=== PATIENT | female | born 1960 | race Caucasian/White ===

== ENCOUNTER → 2020-02-29 19:39 | Outpatient (CLI) | payer MEDICAID, SELFPAY ==
[2020-02-29 20:43] LABS: Chloride 101 mmol/L (98-107); Potassium 4.2 mmoL/L (3.5-5.1); Sodium 138 mmol/L (136-145)
[2020-02-29 20:46] LABS: Alanine Aminotransferase 23 U/L (12-78); Albumin Level 4.6 g/dl (3.5-5.0); Albumin/Globulin Ratio 1.3 (1.1-1.8); Alkaline Phosphatase 80 U/L (38-126); Anion Gap 8.2 mEq/L (5-15); Aspartate Amino Transferase 27 U/L (14-36); Bilirubin,Total 0.4 mg/dl (0.2-1.3); Blood Urea Nitrogen 12 mg/dl (7-17); Calcium 9.8 mg/dl (8.4-10.2); Carbon Dioxide 33 mmol/L (22.0-30.0); Estimated Glomerular Filt Rate 74 ml/min (>60); GFR (African American) 89 ML/MIN (>60); Globulin 3.5 g/dL (1.3-3.2); Glucose 111 mg/dl (74-100); HDL Cholesterol 55 mg/dl (40-60); Total Protein,Serum 8.1 g/dl (6.3-8.2); Triglycerides 394 mg/dl (30-150); VLDL Cholesterol 79 mg/dL (0-40)
[2020-02-29 20:51] LABS: Basophils # 0.3 K/mm3 (0-0.2); Basophils % 3.9 % (0.1-2.0); Eosinophils # 0.2 K/mm3 (0.0-0.4); Eosinophils % 2.7 % (0.1-12.0); Hematocrit 43.7 % (37.0-47.0); Hemoglobin 15.1 g/dL (12.2-16.2); Lymphocytes # 2.8 K/mm3 (0.7-4.5); Mean Corpuscular HGB Conc 34.6 g/dL (31.8-35.4); Mean Corpuscular Volume 95.4 fl (81-99); Monocytes # 0.4 K/mm3 (0.1-1.0); Monocytes % 4.6 % (1.7-9.3); Neutrophils # 5.1 K/mm3 (1.8-7.8); Neutrophils % 59.8 % (37.0-80.0); Platelet Count 252 K/mm3 (142-424); Red Blood Count 4.58 M/mm3 (4.20-5.40); Red Cell Distribution Width 15.6 % (11.5-17.5); White Blood Count 8.5 K/mm3 (4.8-10.8)
[2020-02-29 20:54] LABS: Chol/HDL Ratio 6.5 (1-3.5); Cholesterol 355 mg/dl (140-200)
[2020-02-29 20:58] LABS: Direct LDL Cholesterol 238.74 mg/dL (100-129)
[2020-02-29 21:04] LABS: T4 (Thyroxine) 6.5 ug/dl (5.53-11.0)
== END ==
PROVIDERS: Visit Provider Nurse Practitioner Family
DX: Z00.00 Encounter for general adult medical examination without abnormal findings (principal); E03.9 Hypothyroidism, unspecified; S46.911A Strain of unspecified muscle, fascia and tendon at shoulder and upper arm level, right arm, initial encounter; Z79.899 Other long term (current) drug therapy
CPT/HCPCS: 80053; 80061; 84436; 84443; 85025

== ENCOUNTER → 2020-04-06 12:25 | Outpatient (CLI) | payer MEDICAID, SELFPAY | PROVIDERS: PCP Nurse Practitioner Family; Referring Provider Nurse Practitioner Family; Visit Provider Nurse Practitioner Family | DX: Z20.822 Contact with and (suspected) exposure to COVID-19 (principal) | CPT/HCPCS: U0003 ==

== ENCOUNTER → 2020-05-03 13:45 | Outpatient (CLI) | payer MEDICAID, SELFPAY ==
[2020-05-03 14:33] LABS: Free T4 (Free Thyroxine) 1.59 ng/dl (0.78-2.19)
[2020-05-03 14:46] LABS: Thyroid Stimulating Hormone 2.58 uIU/mL (0.465-4.68)
== END ==
PROVIDERS: Visit Provider Nurse Practitioner Family
DX: E05.00 Thyrotoxicosis with diffuse goiter without thyrotoxic crisis or storm (principal); K59.00 Constipation, unspecified
CPT/HCPCS: 84439; 84443

== ENCOUNTER 2020-05-24 13:25 | Outpatient (CLI) | payer MEDICAID, SELFPAY ==
[2020-05-24 13:32] VITALS: BMI 24.2
[2020-05-24 14:08] LABS: Chloride 108 mmol/L (98-107)
[2020-05-24 14:09] LABS: Basophils # 0.2 K/mm3 (0-0.2); Basophils % 1.7 % (0.1-2.0); Eosinophils # 0.3 K/mm3 (0.0-0.4); Hematocrit 42.9 % (37.0-47.0); Hemoglobin 13.9 g/dL (12.2-16.2); Lymphocytes % 29.5 % (10-50); Mean Corpuscular HGB Conc 32.3 g/dL (31.8-35.4); Mean Corpuscular Volume 95.8 fl (81-99); Mean Platelet Volume 10.6 fl (7.4-10.4); Monocytes # 0.5 K/mm3 (0.1-1.0); Monocytes % 5.2 % (1.7-9.3); Neutrophils # 6.1 K/mm3 (1.8-7.8); Neutrophils % 60.6 % (37.0-80.0); Platelet Count 197 K/mm3 (142-424); Potassium 3.8 mmoL/L (3.5-5.1); Red Blood Count 4.48 M/mm3 (4.20-5.40); Red Cell Distribution Width 12.7 % (11.5-17.5); Sodium 140 mmol/L (136-145); White Blood Count 10.1 K/mm3 (4.8-10.8)
[2020-05-24 14:11] LABS: Alanine Aminotransferase 16 U/L (12-78); Aspartate Amino Transferase 22 U/L (14-36); Bilirubin,Total 0.3 mg/dl (0.2-1.3); Blood Urea Nitrogen 5 mg/dl (7-17); Creatinine Clearance Estimated 125 mL/min (50-200); Estimated Glomerular Filt Rate 127 ml/min (>60); GFR (African American) 154 ML/MIN (>60)
[2020-05-24 14:12] LABS: Albumin Level 4.2 g/dl (3.5-5.0); Albumin/Globulin Ratio 1.6 (1.1-1.8); Alkaline Phosphatase 69 U/L (38-126); Anion Gap 5.8 mEq/L (5-15); Carbon Dioxide 30 mmol/L (22.0-30.0); Globulin 2.7 g/dL (1.3-3.2); Glucose 113 mg/dl (74-100); Total Protein,Serum 6.9 g/dl (6.3-8.2)
[2020-05-26 19:12] LABS: CEA 4.1 ng/mL (0.0-4.7)
== END 2020-05-24 13:50 | disposition home or self-care (01) ==
LOC: INF 13:34
PROVIDERS: PCP Nurse Practitioner Family; Visit Provider Internal Medicine Medical Oncology
DX: Z85.038 Personal history of other malignant neoplasm of large intestine (principal); Z45.2 Encounter for adjustment and management of vascular access device
CPT/HCPCS: 80053; 82378; 85025; J1642

== ENCOUNTER → 2020-06-14 06:48 | Outpatient (CLI) | payer MEDICAID, SELFPAY ==
--- NOTE | 2020-06-14 06:57 | CT_ITS ---
PROCEDURE: CT CHEST WO CON CLINICAL INDICATION: COLON CANCER R/o mets Seasonal sinus allergies COMPARISON: No exams were available for comparison TECHNIQUE: Axial images obtained with sagittal and coronal reformats. All CT scans at the facility use one or more dose reduction, viz: automated exposure control, ma/kV adjustment per patient size (including targeted exams where dose is matched to indication, i.e. head), or iterative reconstruction technique. FINDINGS: HEART AND MEDIASTINAL STRUCTURES: There are few small mediastinal lymph nodes some of which are calcified. The largest noncalcified node is in the AP window having a bilobed configuration at 13 by 9 mm. There is a right IJ MediPort catheter present with tip in the region the SVC. LUNGS AND PLEURAL SPACES: Nonspecific 3 mm noncalcified nodule right lower lobe series 3, image 50. Calcified granuloma right upper lobe. No suspicious pulmonary nodules apparent. No effusions or infiltrates. BONY STRUCTURES: No acute bony abnormalities apparent. UPPER ABDOMEN: Unremarkable. ADDITIONAL FINDINGS: Ill-defined nodular opacity is present involving the medial aspect of the right breast measuring 10 mm series 3, image 36. This may only be due to an area of asymmetric tissue. Suggest mammogram if not recently performed. IMPRESSION: No convincing evidence of metastatic disease. There is a 3 mm nodule in the right lower lobe nonspecific too small to categorize. Stability may be confirmed with 6-12 month follow-up. Ill-defined nodular opacity is present involving the medial aspect of the right breast measuring 10 mm . This may only be due to an area of asymmetric tissue. Cannot exclude the possibility of a breast nodule. Suggest mammogram an ultrasound if not recently performed. Dictated by: Easton Montgomery MD 06/15/2020 10:26 Easton Montgomery MD in [place] 06/15/2020 10:26
== END ==
PROVIDERS: PCP Nurse Practitioner Family; Visit Provider Internal Medicine Medical Oncology
DX: C18.9 Malignant neoplasm of colon, unspecified (principal)
CPT/HCPCS: 71250

== ENCOUNTER 2020-06-21 08:00 | Outpatient (RCR) | payer MEDICAID, SELFPAY | END 2020-06-21 08:05 | disposition home or self-care (01) | LOC: OT 08:00 | PROVIDERS: PCP Nurse Practitioner Family; Visit Provider Nurse Practitioner Family | DX: M25.511 Pain in right shoulder (principal); G89.29 Other chronic pain | CPT/HCPCS: 97014; 97110; 97166; G0283 ==

== ENCOUNTER 2021-11-21 14:49 | Outpatient (CLI) | payer MEDICAID, SELFPAY ==
[2021-11-21 14:54] VITALS: BMI 21.8
[2021-11-21 15:11] LABS: Basophils # 0.1 K/mm3 (0-0.2); Basophils % 1.4 % (0.1-2.0); Eosinophils # 0.2 K/mm3 (0.0-0.4); Hematocrit 42.6 % (37.0-47.0); Hemoglobin 13.5 g/dL (12.2-16.2); Lymphocytes # 2.5 K/mm3 (0.7-4.5); Lymphocytes % 42.3 % (10-50); Mean Corpuscular HGB Conc 31.7 g/dL (31.8-35.4); Mean Corpuscular Hemoglobin 30.3 pg (27.0-31.2); Mean Corpuscular Volume 95.5 fl (81-99); Monocytes # 0.5 K/mm3 (0.1-1.0); Monocytes % 8.4 % (1.7-9.3); Neutrophils # 2.7 K/mm3 (1.8-7.8); Neutrophils % 44.9 % (37.0-80.0); Platelet Count 170 K/mm3 (142-424); Red Blood Count 4.46 M/mm3 (4.20-5.40); Red Cell Distribution Width 12.4 % (11.5-17.5); White Blood Count 5.9 K/mm3 (4.8-10.8)
[2021-11-21 15:19] LABS: Chloride 100 mmol/L (98-107); Potassium 4.3 mmoL/L (3.5-5.1); Sodium 138 mmol/L (136-145)
[2021-11-21 15:21] LABS: Blood Urea Nitrogen 11 mg/dl (7-17); Creatinine Clearance Estimated 61 mL/min (50-200); Estimated Glomerular Filt Rate 64 ml/min (>60); GFR (African American) 78 ML/MIN (>60)
[2021-11-21 15:22] LABS: Alanine Aminotransferase 12 U/L (12-78); Albumin Level 4.1 g/dl (3.5-5.0); Albumin/Globulin Ratio 1.4 (1.1-1.8); Alkaline Phosphatase 70 U/L (38-126); Anion Gap 10.3 mEq/L (5-15); Aspartate Amino Transferase 24 U/L (14-36); Bilirubin,Total < 0.1 mg/dl (0.2-1.3); Carbon Dioxide 32 mmol/L (22.0-30.0); Globulin 2.9 g/dL (1.3-3.2)
[2021-11-21 15:23] LABS: Calcium 8.7 mg/dl (8.4-10.2); Glucose 93 mg/dl (74-100)
[2021-11-23 09:54] LABS: CEA 3.3 ng/mL (0.0-4.7)
== END 2021-11-21 15:03 | disposition home or self-care (01) ==
LOC: INF 14:51
PROVIDERS: PCP Nurse Practitioner Family; Visit Provider Internal Medicine Medical Oncology
DX: C18.9 Malignant neoplasm of colon, unspecified (principal)
CPT/HCPCS: 36591; 80053; 82378; 85025; J1642

== ENCOUNTER → 2021-11-28 10:40 | Outpatient (CLI) | payer MEDICAID, SELFPAY | PROVIDERS: PCP Nurse Practitioner; Visit Provider Nurse Practitioner | DX: R53.83 Other fatigue (principal); I10 Essential (primary) hypertension; E78.5 Hyperlipidemia, unspecified; E05.00 Thyrotoxicosis with diffuse goiter without thyrotoxic crisis or storm; E55.9 Vitamin D deficiency, unspecified | CPT/HCPCS: 80053; 80061; 82306; 84443; 85025 ==

== ENCOUNTER → 2021-12-11 08:41 | Outpatient (CLI) | payer MEDICAID, SELFPAY ==
--- NOTE | 2021-12-11 08:49 | CT_ITS ---
FINAL REPORT CLINICAL HISTORY: COLON CANCER COMPARISON: 06/14/2020 FINDINGS: Axial CT images of the chest were obtained with contrast. Coronal reformatted images were also obtained. This study was performed with techniques to keep radiation doses as low as reasonably achievable, (ALARA). Individualized dose reduction techniques using automated exposure control or adjustment of mA and/or KV according to the patient's size were employed. A right chest port is present. There are small mediastinal lymph nodes. There is no evidence of hilar mass or adenopathy. No axillary mass or adenopathy is identified. On lung window images, no pulmonary mass or dominant pulmonary nodule is identified. There is a calcified granuloma in the posterior right upper lobe. The small right lower lobe nodule seen previously is not definitely seen on the current exam. There is mild left lung base atelectasis or scarring. No new mass or nodule is identified. Limited images of the upper abdomen reveal no mass or localized inflammatory process. IMPRESSION: Previously seen right lower lobe nodule not definitely seen on current exam. No new mass or nodule identified. Mild left lung base atelectasis or scarring. Reviewed, Interpreted and Dictated by Danielito Hewitt III, MD Transcribed by Temitope Ricks Authenticated and [facility]
--- NOTE | 2021-12-11 08:49 | CT_ITS ---
FINAL REPORT CLINICAL HISTORY: COLON CANCER COMPARISON: Chest CT dated 06/14/2020 FINDINGS: The patient was injected with intravenous contrast. Oral contrast was administered. Axial images through the abdomen and pelvis were performed. This study was performed with techniques to keep radiation doses as low as reasonably achievable (ALARA). Individualized dose reduction techniques using automated exposure control or adjustment of mA and/or kV according to the patient's size were employed. Abdomen: The lung bases are clear. The liver is normal in size and attenuation. There is nonspecific gallbladder wall thickening. There is no evidence of biliary ductal dilatation. The spleen is unremarkable. There is mild left adrenal gland enlargement, stable and favors an adenoma or hyperplasia. The pancreas is unremarkable. The kidneys enhance appropriately. The aorta is normal in caliber. There is no free fluid or adenopathy. There are postoperative changes in the left abdomen. Pelvis: The appendix is not identified. There are postoperative changes from hysterectomy. The urinary bladder is unremarkable. There is no free fluid or adenopathy. IMPRESSION: Nonspecific gallbladder wall thickening with no evidence of biliary ductal dilatation. Stable mild left adrenal gland enlargement, favor adenoma or hyperplasia. Reviewed, Interpreted and Dictated by Danielito Hewitt III, MD Transcribed by Temitope Ricks Authenticated and [facility]
--- NOTE | 2021-12-11 09:33 | MM_ITS ---
PROCEDURE INFORMATION: Exam: MG Bilateral Screening 3D Mammography Exam date and time: 12/11/2021 9:24 AM Age: 61 years old Clinical indication: Screening examination TECHNIQUE: Imaging protocol: Bilateral Screening tomosynthesis and 2D mammography including computer-aided detection (CAD) when performed. COMPARISON: 1. MG DIGITAL MAMMO SCREEN KOLBY 04/09/2018 11:05 AM 2. MG BREAST CORE BX RT 10/26/2014 8:27 AM 3. MG MAMMO POST PLACEMENT 10/26/2014 8:04 AM 4. MG DIGITAL MAMMO DIAG RT 10/13/2014 8:47 AM FINDINGS: MAMMOGRAPHY: Breast composition: The breast is heterogeneously dense, which may obscure small masses. Mass: None. Architectural distortion: No new or suspicious architectural distortion. Calcifications: Stable benign-appearing calcifications are present. No new or suspicious cluster of microcalcifications have developed. Asymmetric density: No new or suspicious asymmetric density is present Skin thickening: None. Axillary adenopathy: None. IMPRESSION: No mammographic evidence of malignancy. Recommend annual screening mammography unless otherwise clinically indicated. ASSESSMENT: BI-RADS category 2: Benign
== END ==
PROVIDERS: PCP Nurse Practitioner; Visit Provider Internal Medicine Medical Oncology
DX: C18.9 Malignant neoplasm of colon, unspecified (principal); Z12.31 Encounter for screening mammogram for malignant neoplasm of breast
CPT/HCPCS: 71260; 74177; 77063; 77067; Q9967

== ENCOUNTER 2022-01-31 08:14 | Day surgery (SDC) | payer MEDICAID, SELFPAY ==
[2022-01-27 14:04] VITALS: BMI 22.3
[2022-01-31 08:36] VITALS: BP 154/61; PULSE 69; RESP 18; TEMP 36.1; O2SAT 100
[2022-01-31 09:07] VITALS: O2SAT 100
--- NOTE | 2022-01-31 09:17 | P.PN_ITS ---
[facility] Disclaimer: The information contained in this section may have been updated after the patient was seen, as this information can be updated by other users. Medical History Colon cancer Graves disease Graves' disease in remission H/O colon cancer, stage IV HTN (hypertension), benign Hyperlipidemia Surgical History H/O total hysterectomy History of repair of right rotator cuff History of tonsillectomy and adenoidectomy Hx of appendectomy Family History Brother Colon cancer Mother Colon cancer Social History Smoking Status: Never smoker alcohol intake: never substance use type: denies use current occupational status: unemployed Travel in the last 8 weeks: None household members: family housing: house [facility] Anesthesia Checklist Patient Identification Patient Identification: Arm Band and Verbal (Name & ) Structural Data Admitted From: Home Planned Operative Procedure/s: Colonoscopy Consent for Planned Operative Procedure(s) Verified: Yes Verified Documents: Surgical Consent NPO Status Verified Time NPO: 00:00 Airway Assessment Dentition: Edentulous Neurological Assessment Level of Consciousness: Awake, Alert and Appropriate Anesthesia Plan Anesthesia Risk discussed: Yes ASA Class: III Anesthesia Type: MAC
--- NOTE | 2022-01-31 09:49 | P.PCN_ITS ---
Procedure: Date: 01/31/22 Patient Date of :: 1960 Procedure Performed:: Colonoscopy with polypectomy using snare and biopsy Indications:: Patient is a 61-year-old female. She has a reported history of colon cancer treated in 2013 with resection [id number]. She states that initially this was stage II. She had apparent recurrence and this was upgraded to stage IV secondary to apparent abdominal wall tumor in 2014. She did have a colonoscopy in 2016. There is apparently a an extensive family history of colon cancer with her mother dying of colon cancer and she has 2 brothers who have been diagnosed with colon cancer. Performing Provider:: Danielito Desir MD Referring Provider:: Shane Boyce Sedation:: MAC sedation Procedure:: Patient history was obtained and appropriate physical examination was performed. Patient's medications and allergies were reviewed. Informed consent was obtained after explaining the benefits, alternatives, and risks of the procedure including, but not limited to, bleeding, perforation, missed lesions, and adverse reaction to anesthesia medications. Patient was transported to endoscopy procedure room. Patient was connected to monitoring devices. Throughout the procedure the patient's blood pressure, pulse, and oxygen saturations were monitored continuously. Patient identification and planned procedure were verified by the staff. Patient was positioned in lateral decubitus position. Digital anorectal exam was performed. Variable stiffness Olympus colonoscope was inserted and advanced under direct visualization to the apparent ileocolic anastomosis. Adequacy of the colonic preparation was noted. The colonoscope was advanced a short distance into the terminal ileum. The colonoscope was then slowly withdrawn while carefully examining the color, texture, anatomy, and integrity of the mucosoa circumferentially. Within the rectum retroflexion was performed. Colonoscope was then withdrawn. Findings:: She had a rather shortened colon measuring about 50 cm from the anal verge to the ileocolic anastomosis. There appeared to be possibly a second anastomosis at approximately 25 cm. There was some hypertrophic mucosa which may be merely anastomotic granulation tissue but biopsies were performed. This area was marked with Deyanira ink. Just distal to this there was a punctate mucosal ulceration which was biopsied as rectosigmoid colon biopsy. She had several hyperplastic appearing polyps in the rectosigmoid which were removed with biopsy forceps and second polyp removed with snare with residual polyp removed with biopsy forceps. In the rectum there were several diminutive hyperplastic appearing polyps removed with snare. Hemoclip was placed on 1 of these for assurance of hemostasis. Retroflexion in the rectum revealed no evidence of any pathologic internal hemorrhoids. Impression: Shortened colon with ileocolic anastomosis at 50 cm. Possible second anastomo sis as a colono?colic anastomosis at 25 cm Prominent hypertrophic mucosa at possible second distal anastomosis which was biopsied and tattooed with Deyanira ink Several hyperplastic appearing rectosigmoid and rectal polyps Recommendations:: Repeat colonoscopy pending pathology. If biopsies at the rectosigmoid region of the possible anastomosis are truly adenomatous may require referral for more definitive management due to her complex history. Complications:: None immediately apparent Estimated blood obtained (mL): 3
[2022-01-31 09:50] VITALS: BP 94/66; PULSE 56; RESP 16; TEMP 36.7; O2SAT 100
[2022-01-31 10:00] VITALS: BP 110/61; PULSE 56; RESP 16; O2SAT 99
[2022-01-31 10:10] VITALS: BP 132/70; PULSE 60; RESP 17; O2SAT 99
[2022-01-31 10:37] VITALS: BP 147/79; PULSE 61; RESP 16; O2SAT 100
== END 2022-01-31 10:50 | disposition home or self-care (01) ==
PROVIDERS: PCP Nurse Practitioner Family; Visit Provider Surgery
PROC: 0DJD8ZZ Inspection of Lower Intestinal Tract, Via Natural or Artificial Opening Endoscopic (ICD-10-PCS; CPT 45380; principal; 2022-01-31 09:30)
DX: Z12.11 Encounter for screening for malignant neoplasm of colon (principal); Z86.010 Personal history of colon polyps; D12.8 Benign neoplasm of rectum; Z79.899 Other long term (current) drug therapy
CPT/HCPCS: 45380; 45385; J1642; J2704

== ENCOUNTER 2022-03-30 12:09 | Emergency (ER) | payer MEDICAID, SELFPAY ==
[2022-03-30 12:19] VITALS: BP 143/66; PULSE 68; RESP 14; TEMP 36.4; O2SAT 100; BMI 22.3
--- NOTE | 2022-03-30 12:25 | EXP.UTC ---
Discharge Plan Disposition Patient Disposition: Home, Self-Care Condition: Good Prescriptions Prescriptions: New diclofenac sodium 1 % gel 2 g topical TIDP PRN (Reason: pain) Qty: 100 0RF Rx Instructions: apply to back of shoulder as directed for pain No Action levothyroxine 88 mcg tablet See Rx Instructions .ROUTE .COMPLEX Qty: 90 1RF Dose Instruction: Take 1 Tablet by mouth once daily. Rx Instructions: Take 1 Tablet by mouth once daily. atorvastatin 20 mg tablet 20 mg PO DAILY cetirizine [Zyrtec] 10 mg tablet 10 mg PO DAILY citalopram 20 mg tablet See Rx Instructions .ROUTE .COMPLEX Rx Instructions: Take 1 tablet by mouth once daily famotidine 20 mg tablet 20 mg PO DAILY lisinopril 10 mg tablet 10 mg PO DAILY hydrochlorothiazide 25 mg tablet 25 mg PO DAILY fluticasone propionate [Flonase Allergy Relief] 50 mcg/actuation spray,suspension 1 spray intranasal DAILY Rx Instructions: administer into each nostril cholecalciferol (vitamin D3) 50 mcg (2,000 unit) capsule 50 mcg PO DAILY cholecalciferol (vitamin D3) 1,250 mcg (50,000 unit) tablet 1,250 mcg PO WEEKLY peg 3350-electrolytes [Golytely] 236-22.74-6.74 -5.86 gram recon soln 240 ml PO Q10M Rx Instructions: until fecal effluent is clear Referrals Follow up/Referrals: Shane Caicedo APRN [Primary Care Provider] - See instructions Shashank Kearns DO [Staff Physician] - See instructions Activity Restrictions/Add. Instructions Additional Instructions/Restrictions: *Ibuprofen pablo 6 hours with meal as needed for pain/inflammation *Remember you had a Toradol shot in the clinic today, which is similar to Motrin *Not additional anti-inflammatory like motrin, aleve, advil with the above amount of ibuprofen. You can still take Tylenol every 4 hours as needed if you need something else for pain Follow up *Keep this area active, no movement leads to more stiffness, However take it easy and avoid heavy lifting pushing or pulling *Follow up with you family doctor if no improvement for further treatment Follow up with Orthopedics for further evaluation and examination Clinical Impressions Clinical Impression: Right shoulder injury Stand Alone Forms Stand Alone Forms: Work/School Release Instructions Patient Instructions: DI for Shoulder Pain, Diclofenac Topical (arthritis pain) Discharge ED Provider: Tiff Clayton [facility] [place] General Stated complaint: RT shoulder pain/numbness Time Seen by Provider: 03/30/22 12:59 History of Present Illness Provider Complaint: Patient states that she works at [employer] and is right hand dominant States that about a week ago she started having pain in her right shoulder States that she had previous surgery on shoulder for rotator cuff repair and thinks she may have reinjuried it States that she has been having pain in her right shoulder when she moves it certain ways and shoots pain down her arm into her hand/fingers States that she wasnt able to go to work yesterday and had to call in so she came in today to get it checked and get a note for work Related Data Home Medications Medication Instructions Recorded Confirmed atorvastatin 20 mg tablet 20 mg PO DAILY Cholesterol 01/27/22 01/27/22 cetirizine 10 mg tablet (Zyrtec) 10 mg PO DAILY allergies 01/27/22 01/27/22 cholecalciferol (vitamin D3) 1,250 1,250 mcg PO WEEKLY Supplement 01/27/22 01/27/22 mcg (50,000 unit) tablet cholecalciferol (vitamin D3) 50 50 mcg PO DAILY Supplement 01/27/22 01/27/22 mcg (2,000 unit) capsule citalopram 20 mg tablet See Rx Instructions .Route 01/27/22 01/27/22 .COMPLEX Depression famotidine 20 mg tablet 20 mg PO DAILY acid reflux 01/27/22 01/27/22 fluticasone propionate 50 1 spray intranasal DAILY allergies 01/27/22 01/27/22 mcg/actuation nasal spray,suspension (Flonase Allergy Relief) hydrochlorothiazide 25 mg tablet
[2022-03-30 12:45] VITALS: BP 143/66; PULSE 68; RESP 20; O2SAT 100; BMI 10.1
--- NOTE | 2022-03-30 12:48 | XR_ITS ---
PROCEDURE INFORMATION: Exam: XR Right Shoulder Exam date and time: 03/30/2022 12:48 PM Age: 61 years old Clinical indication: Pain; Prior surgery; Surgery date: 6+ months; Surgery type: Right rotator cuff surgery 1 year ago. Patient HX: Patient worked for [employer]. 2 years ago she was unloading a truck when a 150lb package fell and hit her right shoulder. She had right rotator cuff repair 1 year ago. She has a port a cath from when she had colon cancer about 3 years ago. Supposedly cancer free at this time. ; Additional info: Pain in right shoulder since original injury 2 years ago. Limited range of motion. TECHNIQUE: Imaging protocol: Radiologic exam of the Right shoulder. Views: 2 or more views. COMPARISON: CT CHEST W CON 12/11/2021 9:12 AM FINDINGS: Bones/joints: Moderate to moderately severe degenerative changes of glenohumeral joint. Moderate degenerative changes of acromioclavicular joint. Soft tissues: Normal. Chuck catheter tip projected over atrial caval junction. IMPRESSION: No acute findings. Degenerative changes.
[2022-03-30 13:36] VITALS: BP 144/85; PULSE 77; RESP 20; TEMP 36.9; O2SAT 100
== END 2022-03-30 13:36 | disposition home or self-care (01) ==
PROVIDERS: Emergency Provider Nurse Practitioner; PCP Nurse Practitioner Family
DX: S49.91XA Unspecified injury of right shoulder and upper arm, initial encounter (principal)
CPT/HCPCS: 73030; 99212; 99213; G0463

== ENCOUNTER 2022-04-14 14:38 | Outpatient (RCR) | payer MEDICAID, SELFPAY | END 2022-04-14 14:40 | disposition home or self-care (01) | LOC: OT 14:38 | PROVIDERS: PCP Nurse Practitioner Family; Visit Provider Nurse Practitioner Family | DX: M25.511 Pain in right shoulder (principal); M25.611 Stiffness of right shoulder, not elsewhere classified; S49.91XA Unspecified injury of right shoulder and upper arm, initial encounter ==

== ENCOUNTER → 2022-05-01 10:03 | Outpatient (CLI) | payer MEDICAID, SELFPAY ==
--- NOTE | 2022-05-01 10:04 | MR_ITS ---
FINAL REPORT CLINICAL HISTORY: Neck pain. right sided neck pain that radiates down arm COMPARISON: none FINDINGS: Multiplanar MR imaging of the cervical spine was performed without contrast. On the sagittal T2-weighted images, disc degeneration is seen throughout. There are endplate changes at multiple levels. There is no evidence of fracture. The vertebral alignment is normal. The cervical spinal cord has an unremarkable appearance without evidence of mass, edema or syrinx. The cervicomedullary junction is normal. C2-3: There is no significant canal stenosis or neural foraminal narrowing. C3-4: Disc osteophyte complex. Mild right severe left neural foraminal narrowing. C4-5: Disc osteophyte complex. Moderate right and severe left neural foraminal narrowing. Mild central canal stenosis with AP diameter of the thecal sac of 8 mm. C5-6: Disc osteophyte complex. Moderate bilateral neural foraminal narrowing. Mild central canal stenosis with AP diameter of the thecal sac of 9 mm. C6-7: Disc osteophyte complex. Moderate right and severe left neural foraminal narrowing. Mild central canal stenosis with AP diameter of the thecal sac of 7 mm. C7-T1: Disc osteophyte complex. Mild bilateral neural foraminal narrowing. IMPRESSION: Multilevel degenerative disc disease as above. Reviewed, Interpreted and Dictated by Danielito Hewitt III, MD Transcribed by Camila Lopez Authenticated and [facility]
== END ==
PROVIDERS: PCP Nurse Practitioner Family; Visit Provider Nurse Practitioner Family
DX: M54.2 Cervicalgia (principal)
CPT/HCPCS: 72141; 76376

== ENCOUNTER 2022-06-04 08:00 | Outpatient (RCR) | payer MEDICAID, SELFPAY ==
--- NOTE | 2022-05-28 11:00 | HMH.RHREAS ---
Rehab Reassessment Rehab OP Re-assessment Start: 05/28/22 10:54 Freq: Status: Active Protocol: Document 05/28/22 10:54 [email or web address] (Rec: 05/28/22 11:00 MESSI [id number]) E-signed By Chasity Leon PT Rehab Re-assessment Subjective Subjective Pt reports neck pain and UE paresthesia has decreased in intensity since starting PT. Pt reports pain at worst as 1- 2/10 within the last week. Pt reports she still has difficulty using her R hand and is currently not working due to this. Objective Objective Notes Cervical AROM: flex 45, ext 45 , LF 35 RUE MMT: 05/28 grossly Assessment Progress Assessment Progressing as Expected Assessment Notes PT has attended 7 PT visits consisting of aerobic exercise , UE stretching/strengthening, neural glides, postural reeducation, manual therapy and modalities with good tolerance. Pt reports improved subjective report of pain and decreased intensity of RUE paresthesia stince starting PT . Pt also demonstrated improved cervical AROM and strength compared to IE. Pt would continue to benefit from skilled PT to further improve pain/paresthesia, UE strength , and functional activity tolerance to improve overall QOL. Patient goals met ST Goals Not Met LTG Revised Goals n/a Plan Plan Continue initial POC, refer to OT for R hand fine motor difficulties Frequency of Therapy 1-2x/week Duration of therapy 4 more weeks Time and Billing Re-Eval Time 10 Re-Eval Billing Units 1 PHYSICIAN CERTIFICATION: I certify the specified therapy services for Ioana Lowe are required, authorized, and reviewed every 30 days.
== END 2022-06-04 08:05 | disposition home or self-care (01) ==
LOC: PT 08:00
PROVIDERS: PCP Nurse Practitioner Family; Visit Provider Nurse Practitioner Family
DX: M54.2 Cervicalgia (principal)
CPT/HCPCS: 97010; 97014; 97110; 97140; 97163; 97164; 97530; G0283

== ENCOUNTER 2022-06-09 08:03 | Outpatient (CLI) | payer MEDICAID, SELFPAY ==
--- NOTE | 2022-06-09 08:14 | CT_ITS ---
FINAL REPORT TECHNIQUE: After the administration of intravenous contrast, axial images through the chest were performed by computed tomography.This study was performed with techniques to keep radiation doses as low as reasonably achievable, (ALARA). Individualized dose reduction techniques using automated exposure control or adjustment of mA and/or kV according to the patient''s size were employed. CLINICAL HISTORY: COLON CANCER FINDINGS: There is no axillary adenopathy. There are small mediastinal lymph nodes. There is no adenopathy. A right-sided chest port is seen. The heart size is normal. There is no pericardial or pleural effusion. Limited images of the upper abdomen are unremarkable. There is a calcified granuloma in the right upper lobe. There is a 2 mm nonspecific nodule in the lateral left upper lobe on image 24. IMPRESSION: Nonspecific 2 mm nodule in the lateral left upper lobe. Reviewed, Interpreted and Dictated by Danielito Hewitt III, MD Transcribed by Sg Kenney Authenticated and [facility]
--- NOTE | 2022-06-09 08:15 | CT_ITS ---
FINAL REPORT TECHNIQUE: Postcontrast axial images through the abdomen and pelvis were performed. This study was performed with techniques to keep radiation doses as low as reasonably achievable, (ALARA). Individualized dose reduction techniques using automated exposure control or adjustment of mA and/or kV according to the patient's size were employed. CLINICAL HISTORY: COLON CANCER COMPARISON: November 2021 FINDINGS: Abdomen: The liver is normal in size and attenuation. There is mild nonspecific gallbladder wall thickening. The spleen is unremarkable. There is stable nonspecific enlargement of the left adrenal gland favoring an adenoma. The pancreas is unremarkable. The kidneys enhance appropriately. The aorta is normal in caliber. There is moderate vascular calcification. No free fluid or adenopathy is identified. Postoperative changes are seen in the left abdomen from partial colectomy. No findings for mechanical bowel obstruction are identified. There is mild nonspecific wall thickening of the sigmoid colon favored to be inflammatory. Pelvis: The appendix is not identified. The urinary bladder is unremarkable. No free fluid, free air, abscess or adenopathy is identified. There has been hysterectomy. IMPRESSION: Mild nonspecific wall thickening of the sigmoid colon favored to be inflammatory. Reviewed, Interpreted and Dictated by Danielito Hewitt III, MD Transcribed by Sg Kenney Authenticated and [facility]
[2022-06-09 08:26] VITALS: BMI 21.1
[2022-06-09 08:50] LABS: Basophils # 0.1 K/mm3 (0-0.2); Basophils % 0.7 % (0.1-2.0); Eosinophils # 0.4 K/mm3 (0.0-0.4); Eosinophils % 2.7 % (0.1-12.0); Hematocrit 38.9 % (37.0-47.0); Hemoglobin 12.9 g/dL (12.2-16.2); Lymphocytes # 3.7 K/mm3 (0.7-4.5); Lymphocytes % 28.5 % (10-50); Mean Corpuscular HGB Conc 33.1 g/dL (31.8-35.4); Mean Corpuscular Hemoglobin 31.3 pg (27.0-31.2); Mean Corpuscular Volume 94.8 fl (81-99); Mean Platelet Volume 10.1 fl (7.4-10.4); Monocytes # 0.7 K/mm3 (0.1-1.0); Neutrophils # 8.2 K/mm3 (1.8-7.8); Neutrophils % 63.1 % (37.0-80.0); Platelet Count 241 K/mm3 (142-424); Red Cell Distribution Width 12.7 % (11.5-17.5); White Blood Count 13.1 K/mm3 (4.8-10.8)
[2022-06-09 08:54] LABS: Chloride 101 mmol/L (98-107)
[2022-06-09 08:55] LABS: Potassium 4.1 mmoL/L (3.5-5.1); Sodium 137 mmol/L (136-145)
[2022-06-09 08:57] LABS: Alanine Aminotransferase 24 U/L (12-78); Aspartate Amino Transferase 26 U/L (14-36); Bilirubin,Total 0.3 mg/dl (0.2-1.3); Blood Urea Nitrogen 14 mg/dl (7-17); Creatinine Clearance Estimated 67 mL/min (50-200); Estimated Glomerular Filt Rate 73 ml/min (>60); GFR (African American) 89 ML/MIN (>60)
[2022-06-09 08:58] LABS: Albumin Level 4.2 g/dl (3.5-5.0); Albumin/Globulin Ratio 1.4 (1.1-1.8); Alkaline Phosphatase 64 U/L (38-126); Anion Gap 12.1 mEq/L (5-15); Calcium 9.4 mg/dl (8.4-10.2); Carbon Dioxide 28 mmol/L (22.0-30.0); Glucose 139 mg/dl (74-100); Total Protein,Serum 7.2 g/dl (6.3-8.2)
[2022-06-10 11:10] LABS: CEA 5.8 ng/mL (0.0-4.7)
== END 2022-06-09 09:11 | disposition home or self-care (01) ==
PROVIDERS: PCP Nurse Practitioner Family; Visit Provider Internal Medicine Medical Oncology
DX: C18.9 Malignant neoplasm of colon, unspecified (principal)
CPT/HCPCS: 36591; 71260; 74177; 80053; 82378; 85025; J1642; Q9967

== ENCOUNTER 2022-07-15 08:08 | Outpatient (CLI) | payer MEDICAID, SELFPAY | END 2022-07-15 08:17 | disposition home or self-care (01) | LOC: INF 08:09 | PROVIDERS: PCP Nurse Practitioner Family; Visit Provider Internal Medicine Medical Oncology | DX: Z45.2 Encounter for adjustment and management of vascular access device (principal) | CPT/HCPCS: 96523; J1642 ==

== ENCOUNTER 2022-07-31 08:00 | Outpatient (RCR) | payer MEDICAID, SELFPAY | END 2022-07-31 08:05 | disposition home or self-care (01) | LOC: OT 08:00 | PROVIDERS: PCP Nurse Practitioner Family; Visit Provider Nurse Practitioner Family | DX: M79.641 Pain in right hand (principal); S69.91XA Unspecified injury of right wrist, hand and finger(s), initial encounter | CPT/HCPCS: 97010; 97014; 97110; 97140; 97165; 97530; 97763; G0283 ==

== ENCOUNTER → 2022-09-11 10:50 | Outpatient (CLI) | payer MEDICAID, SELFPAY ==
[2022-09-11 12:06] LABS: Alanine Aminotransferase 19 U/L (12-78); Albumin Level 4.4 g/dl (3.5-5.0); Albumin/Globulin Ratio 1.8 (1.1-1.8); Alkaline Phosphatase 73 U/L (38-126); Anion Gap 10.4 mEq/L (5-15); Aspartate Amino Transferase 23 U/L (14-36); Bilirubin,Total 0.4 mg/dl (0.2-1.3); Blood Urea Nitrogen 9 mg/dl (7-17); Calcium 9.6 mg/dl (8.4-10.2); Carbon Dioxide 31 mmol/L (22.0-30.0); Chloride 97 mmol/L (98-107); Estimated Glomerular Filt Rate 64 ml/min (>60); GFR (African American) 78 ML/MIN (>60); Globulin 2.5 g/dL (1.3-3.2); Glucose 126 mg/dl (74-100); Potassium 4.4 mmoL/L (3.5-5.1); Sodium 134 mmol/L (136-145); Total Protein,Serum 6.9 g/dl (6.3-8.2)
[2022-09-11 16:26] LABS: Basophils # 0.1 K/mm3 (0-0.2); Basophils % 0.5 % (0.1-2.0); Eosinophils # 0.3 K/mm3 (0.0-0.4); Eosinophils % 2.4 % (0.1-12.0); Hematocrit 35.3 % (37.0-47.0); Hemoglobin 11.7 g/dL (12.2-16.2); Lymphocytes # 2.7 K/mm3 (0.7-4.5); Lymphocytes % 24.6 % (10-50); Mean Corpuscular HGB Conc 33.2 g/dL (31.8-35.4); Mean Corpuscular Hemoglobin 30.8 pg (27.0-31.2); Mean Corpuscular Volume 92.8 fl (81-99); Mean Platelet Volume 9.6 fl (7.4-10.4); Monocytes # 0.4 K/mm3 (0.1-1.0); Monocytes % 3.9 % (1.7-9.3); Neutrophils # 7.4 K/mm3 (1.8-7.8); Neutrophils % 68.5 % (37.0-80.0); Platelet Count 271 K/mm3 (142-424); Red Blood Count 3.81 M/mm3 (4.20-5.40); Red Cell Distribution Width 12.6 % (11.5-17.5); White Blood Count 10.8 K/mm3 (4.8-10.8)
[2022-09-12 11:16] LABS: CEA 4.4 ng/mL (0.0-4.7)
== END ==
PROVIDERS: PCP Nurse Practitioner Family; Visit Provider Internal Medicine Medical Oncology
DX: C18.9 Malignant neoplasm of colon, unspecified (principal)
CPT/HCPCS: 36415; 80053; 82378; 85025

== ENCOUNTER → 2022-09-25 23:46 | Outpatient (CLI) | payer MEDICAID, SELFPAY ==
[2022-09-25 18:29] LABS: T4 (Thyroxine) 12.6 ug/dl (5.53-11.0)
[2022-09-25 18:43] LABS: Thyroid Stimulating Hormone 0.73 uIU/mL (0.465-4.68)
== END ==
PROVIDERS: PCP Nurse Practitioner Family; Visit Provider Nurse Practitioner Family
DX: E05.00 Thyrotoxicosis with diffuse goiter without thyrotoxic crisis or storm (principal)
CPT/HCPCS: 84436; 84443

== ENCOUNTER 2022-12-12 10:32 | Outpatient (CLI) | payer MEDICAID, SELFPAY ==
[2022-12-12 10:37] VITALS: BMI 22.3
[2022-12-12 10:54] LABS: Basophils # 0.1 K/mm3 (0-0.2); Basophils % 0.9 % (0.1-2.0); Eosinophils # 0.2 K/mm3 (0.0-0.4); Eosinophils % 2.2 % (0.1-12.0); Hematocrit 34.3 % (37.0-47.0); Hemoglobin 12.2 g/dL (12.2-16.2); Lymphocytes # 2.8 K/mm3 (0.7-4.5); Lymphocytes % 29.8 % (10-50); Mean Corpuscular HGB Conc 35.7 g/dL (31.8-35.4); Mean Corpuscular Hemoglobin 34.3 pg (27.0-31.2); Mean Platelet Volume 10.6 fl (7.4-10.4); Monocytes # 0.5 K/mm3 (0.1-1.0); Monocytes % 5.5 % (1.7-9.3); Neutrophils # 5.7 K/mm3 (1.8-7.8); Neutrophils % 61.6 % (37.0-80.0); Platelet Count 211 K/mm3 (142-424); Red Blood Count 3.57 M/mm3 (4.20-5.40); Red Cell Distribution Width 13.4 % (11.5-17.5); White Blood Count 9.2 K/mm3 (4.8-10.8)
[2022-12-12 11:03] LABS: Chloride 99 mmol/L (98-107); Potassium 3.9 mmoL/L (3.5-5.1); Sodium 134 mmol/L (136-145)
[2022-12-12 11:06] LABS: Alanine Aminotransferase 24 U/L (12-78); Albumin Level 4.3 g/dl (3.5-5.0); Albumin/Globulin Ratio 1.4 (1.1-1.8); Alkaline Phosphatase 81 U/L (38-126); Anion Gap 10.9 mEq/L (5-15); Aspartate Amino Transferase 25 U/L (14-36); Bilirubin,Total 0.4 mg/dl (0.2-1.3); Blood Urea Nitrogen 11 mg/dl (7-17); Carbon Dioxide 28 mmol/L (22.0-30.0); Creatinine Clearance Estimated 62 mL/min (50-200); Estimated Glomerular Filt Rate 64 ml/min (>60); GFR (African American) 77 ML/MIN (>60); Total Protein,Serum 7.3 g/dl (6.3-8.2)
[2022-12-12 11:07] LABS: Calcium 9.1 mg/dl (8.4-10.2); Glucose 296 mg/dl (74-100)
== END 2022-12-12 10:48 | disposition home or self-care (01) ==
LOC: INF 10:33
PROVIDERS: PCP Internal Medicine Medical Oncology; Visit Provider Internal Medicine Medical Oncology
DX: C18.9 Malignant neoplasm of colon, unspecified (principal); Z72.0 Tobacco use
CPT/HCPCS: 36591; 80053; 82378; 85025; J1642

== ENCOUNTER 2023-03-09 18:59 | Outpatient (CLI) | payer OTHER, SELFPAY ==
[2023-03-09 18:23] LABS: Basophils # 0.1 K/mm3 (0-0.2); Basophils % 0.6 % (0.1-2.0); Eosinophils # 0.2 K/mm3 (0.0-0.4); Eosinophils % 3.3 % (0.1-12.0); Hematocrit 38.6 % (37.0-47.0); Lymphocytes # 2.1 K/mm3 (0.7-4.5); Lymphocytes % 29.2 % (10-50); Mean Corpuscular HGB Conc 33.7 g/dL (31.8-35.4); Mean Corpuscular Hemoglobin 32.9 pg (27.0-31.2); Mean Corpuscular Volume 97.6 fl (81-99); Mean Platelet Volume 12.2 fl (7.4-10.4); Monocytes # 0.3 K/mm3 (0.1-1.0); Monocytes % 4.4 % (1.7-9.3); Neutrophils # 4.5 K/mm3 (1.8-7.8); Neutrophils % 62.4 % (37.0-80.0); Platelet Count 218 K/mm3 (142-424); Red Blood Count 3.95 M/mm3 (4.20-5.40); Red Cell Distribution Width 13.1 % (11.5-17.5); White Blood Count 7.2 K/mm3 (4.8-10.8)
[2023-03-09 18:52] LABS: Chloride 104 mmol/L (98-107)
[2023-03-09 18:53] LABS: Potassium 4.2 mmoL/L (3.5-5.1); Sodium 135 mmol/L (136-145)
[2023-03-09 18:55] LABS: Alanine Aminotransferase 18 U/L (12-78); Anion Gap 7.2 mEq/L (5-15); Aspartate Amino Transferase 23 U/L (14-36); Blood Urea Nitrogen 9 mg/dl (7-17); Carbon Dioxide 28 mmol/L (22.0-30.0); Estimated Glomerular Filt Rate 73 ml/min (>60); GFR (African American) 89 ML/MIN (>60)
[2023-03-09 18:56] LABS: Albumin Level 3.9 g/dl (3.5-5.0); Albumin/Globulin Ratio 1.3 (1.1-1.8); Alkaline Phosphatase 103 U/L (38-126); Bilirubin,Total 0.4 mg/dl (0.2-1.3); Calcium 9.2 mg/dl (8.4-10.2); Chol/HDL Ratio 7.6 (1-3.5); Cholesterol 281 mg/dl (140-200); Globulin 3.1 g/dL (1.3-3.2); Glucose 119 mg/dl (74-100); HDL Cholesterol 37 mg/dl (40-60); Triglycerides 200 mg/dl (30-150); VLDL Cholesterol 40 mg/dL (0-40)
[2023-03-09 19:08] LABS: Direct LDL Cholesterol 177.63 mg/dL (100-129)
[2023-03-09 19:13] LABS: Free T4 (Free Thyroxine) 2.94 ng/dl (0.78-2.19)
[2023-03-09 19:16] LABS: 25-OH Vitamin D, Total 55.8 ng/mL (30-100)
[2023-03-09 19:28] LABS: Thyroid Stimulating Hormone 0.79 uIU/mL (0.465-4.68)
[2023-03-09 19:47] LABS: Vitamin B12 257 pg/mL (239-931)
[2023-03-09 20:10] LABS: Microalbumin < 6.000 mg/L (0-16.7)
[2023-03-09 20:31] LABS: Creatinine,Urine Random 30 mg/dL (Not Estab.)
[2023-03-09 20:52] LABS: Hemoglobin A1C 8.7 % (4.0-6.0)
== END 2023-03-09 23:59 ==
LOC: LAB.DROPOF 19:01
PROVIDERS: PCP Nurse Practitioner; Visit Provider Nurse Practitioner
DX: E05.00 Thyrotoxicosis with diffuse goiter without thyrotoxic crisis or storm (principal); E11.9 Type 2 diabetes mellitus without complications; E78.5 Hyperlipidemia, unspecified; I10 Essential (primary) hypertension; K21.9 Gastro-esophageal reflux disease without esophagitis; Z79.4 Long term (current) use of insulin
CPT/HCPCS: 80053; 80061; 82043; 82306; 82570; 82607; 83036; 84439; 84443; 85025

== ENCOUNTER 2023-06-03 12:07 | Emergency (ER) | payer OTHER, SELFPAY ==
--- NOTE | 2023-06-03 12:20 | CT_ITS ---
FINAL REPORT TECHNIQUE: Postcontrast axial images through the abdomen and pelvis were performed. This study was performed with techniques to keep radiation doses as low as reasonably achievable, (ALARA). Individualized dose reduction techniques using automated exposure control or adjustment of mA and/or kV according to the patient's size were employed. CLINICAL HISTORY: painless jaundice COMPARISON: 06/09/2022 FINDINGS: Abdomen: The lung bases are clear. The liver is normal in size and attenuation. The spleen is unremarkable. The adrenals are normal. There is moderate biliary and pancreatic ductal dilatation to the level of the pancreatic head. There is mild fullness of the pancreatic head, worse than previous. Finding is worrisome for a mass in this region. There is mild gallbladder wall thickening which is nonspecific. The kidneys enhance appropriately. The aorta is normal in caliber. No free fluid or adenopathy is identified. No findings for mechanical bowel obstruction are identified. Pelvis: The appendix is not identified. Postoperative changes are seen in the colon. The patient is status post hysterectomy. There is increased attenuation in the proximal left ureter of uncertain etiology, mass is not excluded. The urinary bladder is unremarkable. No free fluid, free air, abscess or adenopathy is identified. IMPRESSION: Moderate biliary and pancreatic ductal dilatation with findings worrisome for a mass in the pancreatic head worrisome for neoplasm. Increased attenuation in the proximal left ureter, mass is not excluded. Renal mass protocol CT with delayed postcontrast imaging may be helpful versus ureteroscopy. Reviewed, Interpreted and Dictated by Danielito Hewitt III, MD Transcribed by Bebe Perez Authenticated and [facility]
[2023-06-03 12:24] VITALS: BP 120/76; PULSE 93; RESP 20; TEMP 36.8; O2SAT 100; BMI 18.0
[2023-06-03 12:27] VITALS: BMI 18.8
[2023-06-03 12:51] LABS: Chloride 98 mmol/L (98-107); Potassium 3.8 mmoL/L (3.5-5.1); Sodium 134 mmol/L (136-145)
[2023-06-03 12:54] LABS: Alanine Aminotransferase 463 U/L (12-78); Anion Gap 10.8 mEq/L (5-15); Aspartate Amino Transferase 395 U/L (14-36); Bilirubin,Direct 16.5 mg/dl (0.0-0.4); Bilirubin,Total 18.1 mg/dl (0.2-1.3); Blood Urea Nitrogen 11 mg/dl (7-17); Calcium 10.4 mg/dl (8.4-10.2); Carbon Dioxide 29 mmol/L (22.0-30.0); Creatinine Clearance Estimated 52 mL/min (50-200); Estimated Glomerular Filt Rate 64 ml/min (>60); GFR (African American) 77 ML/MIN (>60); Glucose 124 mg/dl (74-100); Lipase 158 U/L (23-300)
[2023-06-03 12:55] LABS: Albumin Level 4.1 g/dl (3.5-5.0); Lactic Acid 1.3 mmol/L (0.7-2.1); Total Protein,Serum 8.1 g/dl (6.3-8.2)
[2023-06-03 12:56] LABS: Ammonia 11 umol/L (9-30)
[2023-06-03 12:57] LABS: Prothrombin Time 10.8 seconds (10.1-12.5)
[2023-06-03 13:00] LABS: Basophils # 0.1 K/mm3 (0-0.2); Eosinophils # 0.2 K/mm3 (0.0-0.4); Eosinophils % 2.6 % (0.1-12.0); Hemoglobin 11.3 g/dL (12.2-16.2); Lymphocytes # 1.7 K/mm3 (0.7-4.5); Mean Corpuscular HGB Conc 32.4 g/dL (31.8-35.4); Mean Corpuscular Hemoglobin 31.2 pg (27.0-31.2); Mean Corpuscular Volume 96.6 fl (81-99); Mean Platelet Volume 14.2 fl (7.4-10.4); Monocytes # 0.5 K/mm3 (0.1-1.0); Monocytes % 5.5 % (1.7-9.3); Neutrophils # 6.6 K/mm3 (1.8-7.8); Platelet Count 110 K/mm3 (142-424); Red Blood Count 3.63 M/mm3 (4.20-5.40); Red Cell Distribution Width 16.2 % (11.5-17.5); White Blood Count 9.1 K/mm3 (4.8-10.8)
--- NOTE | 2023-06-03 13:05 | ED_ITS ---
Discharge Plan Disposition Patient Disposition: Xfer Short-Term Hosp Chief Complaint: Weakness Prescriptions Prescriptions: No Action insulin glargine [Lantus Solostar U-100 Insulin] 100 unit/mL (3 mL) insulin pen 10 unit SQ HS Qty: 15 2RF Rx Instructions: Poor Vision Humulin 70/30 U-100 KwikPen 100 unit/mL (70-30) insulin pen 4 unit SQ BID Qty: 15 2RF Rx Instructions: Poor Vision (DME) blood-glucose meter [Blood Glucose Monitoring] Kit See Rx Instructions .ROUTE .MEDSUPPLY Qty: 1 0RF Rx Instructions: BID (DME) Blood Glucose Test Strip See Rx Instructions .ROUTE .MEDSUPPLY Qty: 50 2RF Rx Instructions: BID atorvastatin 20 mg tablet See Rx Instructions .ROUTE .COMPLEX Qty: 30 2RF Dose Instruction: Take 1 Tablet by mouth once daily. Rx Instructions: Take 1 Tablet by mouth once daily. levothyroxine 75 mcg tablet 75 mcg PO DAILY Qty: 30 2RF ofloxacin 0.3 % drops 1 drp ophthalmic (eye) QID Qty: 5 0RF tramadol 50 mg tablet 50 mg PO Q6H PRN (Reason: pain) Qty: 60 0RF citalopram 20 mg tablet See Rx Instructions .ROUTE .COMPLEX Qty: 90 1RF Dose Instruction: Take 1 Tablet by mouth once daily. Rx Instructions: Take 1 Tablet by mouth once daily. diclofenac sodium 1 % gel See Rx Instructions .ROUTE .COMPLEX Qty: 100 0RF Dose Instruction: Apply 2 grams topically 3 times daily. Apply to back of shoulder as needed for pain. Rx Instructions: Apply 2 grams topically 3 times daily. Apply to back of shoulder as needed for pain. cetirizine 10 mg tablet See Rx Instructions .ROUTE .COMPLEX Qty: 30 2RF Dose Instruction: Take 1 Tablet by mouth once daily. Rx Instructions: Take 1 Tablet by mouth once daily. cyclobenzaprine 10 mg tablet See Rx Instructions .ROUTE .COMPLEX Qty: 60 0RF Dose Instruction: Take 1 Tablet by mouth 3 times daily for muscle spasms. Rx Instructions: Take 1 Tablet by mouth 3 times daily for muscle spasms. fluticasone propionate 50 mcg/actuation spray,suspension See Rx Instructions .ROUTE .COMPLEX Qty: 16 2RF Dose Instruction: Use 1 [place] in each nostril once daily. Rx Instructions: Use 1 [place] in each nostril once daily. lisinopril 10 mg tablet See Rx Instructions .ROUTE .COMPLEX Qty: 30 2RF Dose Instruction: Take 1 Tablet by mouth once daily. Rx Instructions: Take 1 Tablet by mouth once daily. famotidine 20 mg tablet See Rx Instructions .ROUTE .COMPLEX Qty: 30 2RF Dose Instruction: Take 1 Tablet by mouth once daily. Rx Instructions: Take 1 Tablet by mouth once daily. hydrochlorothiazide 25 mg tablet See Rx Instructions .ROUTE .COMPLEX Qty: 30 2RF Dose Instruction: Take 1 Tablet by mouth once daily. Rx Instructions: Take 1 Tablet by mouth once daily. cholecalciferol (vitamin D3) [Vitamin D3] 50 mcg (2,000 unit) capsule See Rx Instructions .ROUTE .COMPLEX Qty: 30 4RF Dose Instruction: Take 1 capsule by mouth once daily Rx Instructions: Take 1 capsule by mouth once daily ergocalciferol (vitamin D2) 1,250 mcg (50,000 unit) capsule See Rx Instructions .ROUTE .COMPLEX Qty: 7 2RF Dose Instruction: Take 1 capsule by mouth once weekly as needed for supplement Rx Instructions: Take 1 capsule by mouth once weekly as needed for supplement aspirin 81 mg tablet,delayed release (DR/EC) See Rx Instructions .ROUTE .COMPLEX Qty: 30 2RF Dose Instruction: TAKE 1 TABLET BY MOUTH ONCE DAILY Rx Instructions: TAKE 1 TABLET BY MOUTH ONCE DAILY Referrals Follow up/Referrals: Kavita Dalton APRN [Primary Care Provider] - See instructions Clinical Impressions Clinical Impression: Obstructive jaundice, Mass of head of pancreas, Hyperbilirubinemia Stand Alone Forms Stand Alone Forms: Transfer Record - ED Discharge ED Provider: Robbin Mora General Adult HPI General Chief complaint: Weakness Stated complaint: jaundice Time Seen by Provider: 06/03/23 12:10 Mode of Arrival: Ambulatory Source of Information: Patient Limitations: No Limitations Description of Symptoms (Recalled from ER Triage Doc. by RN): pt to ed c/o jaundice. pt states she woke up this morning and noticed her complexion was yellow. pt states she has a hx of colon cx in 2016. pt states she has been generally weak x1 month. pt denies any other symptoms. History of Present Illness HPI narrative: 62-year-old female history of hypertension, hyperlipidemia, Graves' disease status post ablation, stage IV colon cancer currently in remission presenting with painless jaundice. Patient states that she has not had colon cancer in a couple of years. Has been feeling generally weak for about a month, this morning, woke up and her daughter noted she was jaundiced. Made a follow-up appointment with her primary care provider, PCP recommended she come immediately to the emergency department. Patient states she has not had fevers, chills, weight loss, but her urine has been dark, no dysuria or hematuria. No abdominal distention, bloating, pain, no other concerns in general. Has been tolerating p.o. intake without issue and making normal stools. Please note that above description of symptoms, in this electronic medical record under categorization of recalled from ER triage doctor by RN are reflective of an initial nursing assessment, however, is not reflective of my full history and physical exam that was personally taken and clarified. Consequentially, this preceding description of symptoms, which may include the patient's categorized chief complaint in the EMR, do not reflect my personal clinical impression, and the ultimate description of history of present illness and patient stated complaints should be deferred to this section of the note. Unless stated otherwise or congruent with this section of the note, additional signs, symptoms, or incongruence should be interpreted as inaccurate with my clinical impression. Related Data Previous Rx's Medication Instructions Recorded tramadol 50 mg tablet 50 mg PO Q6H PRN pain #60 tabs 09/25/22 diclofenac sodium 1 % topical gel See Rx Instructions .Route 10/14/22 .COMPLEX #100 grams cetirizine 10 mg tablet See Rx Instructions .Route 11/12/22 .COMPLEX #30 tabs cyclobenzaprine 10 mg tablet See Rx Instructions .Route 11/12/22 .COMPLEX #60 tabs blood sugar diagnostic (Blood #50 ea 01/28/23 Glucose Test strips) blood-glucose meter (Blood Glucose #1 ea 01/28/23 Monitoring kit) fluticasone propionate 50 See Rx Instructions .Route 01/28/23 mcg/actuation nasal .COMPLEX #16 grams spray,suspension insulin NPH-regular 70-30 U-100 4 unit (0.04 mL) SQ BID DM #15 mL 01/28/23 insulin 100 unit/mL subcutaneous pen (Humulin 70/30 U-100 KwikPen) insulin glargine 100 unit/mL (3 10 unit (0.1 mL) SQ HS DM #15 mL 01/28/23 mL) subcutaneous pen (Lantus Solostar U-100 Insulin) famotidine 20 mg tablet See Rx Instructions .Route 02/24/23 .COMPLEX #30 tabs hydrochlorothiazide 25 mg tablet See Rx Instructions .Route 02/24/23 .COMPLEX #30 tabs lisinopril 10 mg tablet See Rx Instructions .Route 02/24/23 .COMPLEX #30 tabs citalopram 20 mg tablet See Rx Instructions .Route 03/09/23 .COMPLEX #90 tabs atorvastatin 20 mg tablet See Rx Instructions .Route 03/25/23 .COMPLEX #30 tabs cholecalciferol (vitamin D3) 50 See Rx Instructions .Route 03/25/23 mcg (2,000 unit) capsule (Vitamin .COMPLEX #30 caps D3) levothyroxine 75 mcg tablet 75 mcg PO DAILY #30 tabs 03/25/23 ofloxacin 0.3 % eye drops 1 drp ophthalmic (eye) QID #5 mL 03/25/23 ergocalciferol (vitamin D2) 1,250 See Rx Instructions .Route 04/05/23 mcg (50,000 unit) capsule .COMPLEX #7 caps aspirin 81 mg tablet,delayed See Rx Instructions .Route 04/22/23 release .COMPLEX #30 tabs Allergies Allergy/AdvReac Type Severity Reaction Status Date / Time No Known Allergies Allergy Verified 06/03/23 09:26 [facility] Disclaimer: The information contained in this section may have been updated after the patient was seen, as this information can be updated by other users. Medical History (Updated 06/03/23 @ 14:39 by Robbin Mora MD) Jaundice Graves' disease in remission H/O colon cancer, stage IV HTN (hypertension), benign Hyperlipidemia Graves disease Colon cancer Surgical History H/O total hysterectomy Hx of appendectomy History of tonsillectomy and adenoidectomy History of repair of right rotator cuff Family History Brother Colon cancer Mother Colon cancer Social History Smoking Status: Current every day smoker alcohol intake: never substance use type: denies use current occupational status: unemployed Travel in the last 8 weeks: None household members: family housing: house ROS Obtained: Yes All systems reviewed & no additional complaints except as documented Physical Exam General General appearance: alert and in no apparent distress Head Head exam: atraumatic and normocephalic Eye Eye exam: Present normal appearance, PERRL and EOMI ENT ENT exam: Present mucous membranes moist Neck Neck exam: Present normal inspection, full ROM and trachea midline Respiratory Respiratory exam: Absent respiratory distress, wheezes, stridor, accessory muscle use or prolonged expiratory phase Cardiovascular Cardiovascular exam: Present normal rhythm Abdominal Exam Abdominal exam: Present soft; Absent distention, tenderness, guarding, rebound or rigidity Extremities Exam Extremities exam: Absent edema Neurological Exam Neurological exam: Present alert, oriented X3, CN II-XII intact and normal gait; Absent motor sensory deficit Skin Skin exam: Present warm, dry and other (Jaundiced); Absent diaphoresis or erythema Medical Decision Making Medical Records Medical records reviewed: Yes I reviewed the patient's medical records. Thomas Inquiry Pt receiving controlled substance: No Thomas was queried for this patient: No Vital Signs: 06/03/23 12:24 Temperature 98.3 F Temperature Source Oral Pulse Rate [Left Radial] 93 H Respiratory Rate 20 Blood Pressure [Right Arm] 120/76 Blood Pressure Mean [Right Arm] 90 02 Sat by Pulse Oximetry 100 Oxygen Delivery Method Room Air Lab Data Lab Results 06/03/23 12:15: PT 10.8, INR 1.00, Sodium 134 L, Potassium 3.8, Chloride 98, Carbon Dioxide 29, Anion Gap 10.8, BUN 11, Creatinine 0.90, Estimated Creat Clear 52, Estimated GFR 64, Est GFR ( Amer) 77, Glucose 124 H, Lactate 1.3, Calcium 10.4 H, Total Bilirubin 18.1 H* D, Direct Bilirubin 16.5 H, AST 395 H*, ALT 463 H*, Alkaline Phosphatase 1254 H, Ammonia 11, Total Protein 8.1, Albumin 4.1, Globulin 4.0 H, Albumin/Globulin Ratio 1.0 L, Lipase 158 06/03/23 12:47: WBC 9.1, RBC 3.63 L, Hgb 11.3 L, Hct 35.0 L, MCV 96.6, MCH 31.2, MCHC 32.4, RDW 16.2, Plt Count 110 L, MPV 14.2 H, Neut % (Auto) 72.0, Lymph % (Auto) 19.0, [place] % (Auto) 5.5, Eos % (Auto) 2.6, Baso % (Auto) 1.0, Neut # (Auto) 6.6, Lymph # (Auto) 1.7, [place] # (Auto) 0.5, Eos # (Auto) 0.2, Baso # (Auto) 0.1 06/03/23 12:47 06/03/23 12:15 Orders (Tests/Meds): ED MEDICATIONS Generic Name Dose Route Start Last Admin Trade Name Freq PRN Reason Stop Dose Admin Sodium Chloride 10 ml 06/03/23 13:13 06/03/23 13:14 Sodium Chloride 0.9% 10ml Syr (Rad Only) IV 07/03/23 13:12 10 ml NEEDED PRN Administration Maintain IV Site Discontinued Medications Generic Name Dose Route Start Last Admin Trade Name Freq PRN Reason Stop Dose Admin Iopamidol 75 ml 06/03/23 13:13 06/03/23 13:14 Iopamidol-370 (76%);100ml Bottle IV 06/03/23 13:14 75 ml ONCE ONE Administration ORDERS Category Date Time Status CT abdomen pelvis w con Stat Cat Scan 06/03/23 12:20 Completed POCUS Point of Care (ER Only) Stat Exams 06/03/23 12:18 Ordered Ammonia Stat Lab 06/03/23 12:15 Completed Bilirubin,Direct Stat Lab 06/03/23 12:15 Completed CBC w/Auto Diff [Complete Blood Count Auto Diff] Stat Lab 06/03/23 12:47 Completed CMP [Comprehensive Metabolic Panel] Stat Lab 06/03/23 12:15 Completed Lactic Acid Stat Lab 06/03/23 12:15 Completed Lipase Stat Lab 06/03/23 12:15 Completed Prothrombin Time INR Stat Lab 06/03/23 12:15 Completed UA [Urinalysis and Microscopic] Stat Lab 06/03/23 12:17 Ordered Blood Culture Stat Micro 06/03/23 12:40 Received Medical Decision Narrative: 62-year-old female history of hypertension, hyperlipidemia, Graves' disease status post ablation, stage IV colon cancer currently in remission presenting with painless jaundice. Patient states that she has not had colon cancer in a couple of years. Has been feeling generally weak for about a month, this morning, woke up and her daughter noted she was jaundiced. Made a follow-up appointment with her primary care provider, PCP recommended she come immediately to the emergency department. Patient states she has not had fevers, chills, weight loss, but her urine has been dark, no dysuria or hematuria. No abdominal distention, bloating, pain, no other concerns in general. Has been tolerating p.o. intake without issue and making normal stools. History obtained with patient. Differential includes obstructive jaundice, pancreatic mass, choledocholithiasis, cholangiocarcinoma, hepatitis, malignancy, metastases, among others. On physical exam, patient jaundiced, but otherwise negative exam. Cardiac exam within normal limits, nontachycardic, no extracardiac sounds. Lungs are clear to auscultation bilaterally. Abdomen is soft, nontender, nondistended. No lower extremity edema. Neurovascularly intact. Bedside [id number] ultrasound performed, patient has distended gallbladder around 11 cm longitudinally, normal transverse gallbladder, no wall thickening, but she does have common bile duct distention around 9 mm. Hematologic workup concerning for normal CBC, INR normal at 1.0. Chemistry nonactionable with normal electrolytes. Patient's total bilirubin 18.1, direct bilirubin 16.5. AST 395, ALT 463, alkaline phosphatase 1254. Ammonia is normal. Lipase is negative at 158. CT of the abdomen pelvis demonstrated biliary and pancreatic ductal dilation and probable pancreatic head mass concerning for malignancy. See radiology report for final read. Given obstructive jaundice, [facility] was contacted. Because patient high risk for clinical decompensation if discharged, deemed appropriate for transfer and inpatient admission. Results were relayed to patient who voiced understanding and patient was agreeable to transfer, inpatient admission, and management. Patient was graciously accepted and transferred to for further definitive management, under Dr. Smith. Procedures Limited Ultrasound Indication:: Limited RUQ ultrasound Indication: Painless jaundice Identified structures: -Gallbladder -Gallbladder wall -Common bile duct -Liver Findings: Sonographic Ken sign: Absent Gallstones: Absent Sludge: Absent Pericholecystic fluid: Absent Maximal GB wall thickness (mm) (normal is </= 3mm): Normal Common bile duct width (mm) (normal is </= 6mm): Abnormal, 9 mm Gallbladder width (cm) (normal is < 4cm): Normal Gallbladder length (cm) (normal is < 10cm): Abnormal, 11 cm Impression: Distended gallbladder with distended common bile duct 9 mm Images were saved to permanent archive The study was technically adequate CPT 88718-12 This study was performed by me, and I personally interpreted all images/videos. Based on my clinical judgement, these images were adequate and did necessitate further imaging. Critical Care Critical Care Time Critical Care Time: Yes (GI) Attestation: On 06/03/23, the high probability of a clinically significant, sudden or life threatening deterioration of the following system(s) required my full and direct attention, intervention and personal management. The time I documented below is in addition to time spent performing reported procedures but includes the following listed in this critical care notation. Total Time Total Critical Care Time: 60
--- NOTE | 2023-06-03 13:07 | PC.NURSE ---
THIEN ROUNDING ON PTS
[2023-06-03] MEDS: SODIUM CHLORIDE 0.9% 10ML SYR (RAD ONLY) 10 ML IV (13:14)
[2023-06-03] MEDS: IOPAMIDOL-370 (76%);100ML BOTTLE 75 ML IV (13:14)
--- NOTE | 2023-06-03 13:14 | PC.NURSE ---
PT ARRIVED BACK TO ROOM FROM CT
[2023-06-03 13:26] LABS: Alkaline Phosphatase 1254 U/L (38-126)
--- NOTE | 2023-06-03 13:35 | PC.NURSE ---
CALLING [facility] FOR TRANSFER
--- NOTE | 2023-06-03 13:40 | PC.NURSE ---
CALLED [facility] TO POWER SHARE IMAGES TO [facility] AND BURN A DISC
--- NOTE | 2023-06-03 14:35 | PC.NURSE ---
CALLED [facility] FOR TRANSFER STATED WHEN OTHER TRUCK RETURNED FROM PT THEY WOULD BE UP TO GET PT
[2023-06-03 15:00] VITALS: BP 137/78; PULSE 80; O2SAT 100
[2023-06-03 15:30] VITALS: BP 122/75; PULSE 71; O2SAT 98
[2023-06-03 16:00] VITALS: BP 122/67; PULSE 71; O2SAT 100
[2023-06-03 16:22] VITALS: BP 138/78; PULSE 74; RESP 19; TEMP 36.8; O2SAT 100
--- NOTE | 2023-06-07 03:20 | PC.NURSE ---
prelim blood culture results faxed to [facility] [phone] due to transfer
== END 2023-06-03 16:24 | disposition short-term general hospital (02) ==
PROVIDERS: Emergency Provider Emergency Medicine; PCP Nurse Practitioner
DX: K83.1 Obstruction of bile duct (principal); K86.89 Other specified diseases of pancreas; E80.6 Other disorders of bilirubin metabolism; I10 Essential (primary) hypertension; E78.5 Hyperlipidemia, unspecified; F17.210 Nicotine dependence, cigarettes, uncomplicated; Z85.038 Personal history of other malignant neoplasm of large intestine
CPT/HCPCS: 74177; 80053; 82140; 82248; 83605; 83690; 85025; 85610; 87040; 99285; Q9967

== ENCOUNTER 2023-06-18 14:54 | Outpatient (CLI) | payer OTHER, SELFPAY ==
--- NOTE | 2023-06-18 14:59 | CT_ITS ---
FINAL REPORT TECHNIQUE: Axial images were obtained from the lung apex to the mid abdomen by computed tomography. Low-dose protocol was utilized. CLINICAL HISTORY: H/O TOBACCO USE,COLON CANCER SMOKES 1/2 PK PER DAY X 45 YRS COMPARISON: 06/09/2022 FINDINGS: DOSE: CTDIvol: 2.9 mGy, DLP: 109.68 there is a mGy*cm Right upper chest wall present. Port There is no axillary adenopathy. There are densely calcified right paratracheal and hilar lymph nodes. There is no hilar or mediastinal adenopathy. The heart is proper size. There is no pericardial or pleural effusion. Limited images of the upper abdomen demonstrate a metallic biliary stent and mild pneumobilia, otherwise unremarkable. No suspicious infiltrate or nodule identified. There is a calcified granuloma in the right upper lobe. IMPRESSION: No suspicious nodule identified. LUNG RADS CATEGORY 1 RECOMMENDATION: 12 month LDCT follow up Reviewed, Interpreted and Dictated by Miguelito Rider MD Transcribed by LAVERN Malin Authenticated and [facility]
[2023-06-18 18:41] LABS: Basophils # 0.1 K/mm3 (0-0.2); Basophils % 1.2 % (0.1-2.0); Eosinophils # 0.2 K/mm3 (0.0-0.4); Eosinophils % 2.8 % (0.1-12.0); Hematocrit 32.9 % (37.0-47.0); Hemoglobin 10.8 g/dL (12.2-16.2); Lymphocytes # 1.8 K/mm3 (0.7-4.5); Lymphocytes % 21.4 % (10-50); Mean Corpuscular HGB Conc 32.9 g/dL (31.8-35.4); Mean Corpuscular Hemoglobin 32.1 pg (27.0-31.2); Mean Corpuscular Volume 97.8 fl (81-99); Mean Platelet Volume 13.5 fl (7.4-10.4); Monocytes # 0.4 K/mm3 (0.1-1.0); Monocytes % 4.6 % (1.7-9.3); Neutrophils % 69.9 % (37.0-80.0); Platelet Count 265 K/mm3 (142-424); Red Blood Count 3.36 M/mm3 (4.20-5.40); Red Cell Distribution Width 19.7 % (11.5-17.5); White Blood Count 8.5 K/mm3 (4.8-10.8)
[2023-06-18 19:03] LABS: Alanine Aminotransferase 40 U/L (12-78); Albumin Level 3.9 g/dl (3.5-5.0); Albumin/Globulin Ratio 1.3 (1.1-1.8); Alkaline Phosphatase 300 U/L (38-126); Anion Gap 11.9 mEq/L (5-15); Aspartate Amino Transferase 34 U/L (14-36); Bilirubin,Total 2.3 mg/dl (0.2-1.3); Blood Urea Nitrogen 7 mg/dl (7-17); Calcium 9.9 mg/dl (8.4-10.2); Carbon Dioxide 25 mmol/L (22.0-30.0); Chloride 104 mmol/L (98-107); Estimated Glomerular Filt Rate 64 ml/min (>60); GFR (African American) 77 ML/MIN (>60); Glucose 138 mg/dl (74-100); Potassium 4.9 mmoL/L (3.5-5.1); Sodium 136 mmol/L (136-145); Total Protein,Serum 6.9 g/dl (6.3-8.2)
[2023-06-18 19:18] LABS: Free T4 (Free Thyroxine) 1.01 ng/dl (0.78-2.19)
[2023-06-18 19:51] LABS: Vitamin B12 473 pg/mL (239-931)
== END 2023-06-18 23:59 | disposition home or self-care (01) ==
LOC: RAD 14:54
PROVIDERS: PCP Nurse Practitioner; Visit Provider Internal Medicine Medical Oncology
DX: E05.00 Thyrotoxicosis with diffuse goiter without thyrotoxic crisis or storm (principal); Z12.2 Encounter for screening for malignant neoplasm of respiratory organs; F17.210 Nicotine dependence, cigarettes, uncomplicated; K86.89 Other specified diseases of pancreas; E80.6 Other disorders of bilirubin metabolism; Z79.899 Other long term (current) drug therapy
CPT/HCPCS: 71271; 80053; 82607; 84439; 84443; 85025

== ENCOUNTER 2023-07-14 17:29 | Emergency (ER) | payer OTHER, SELFPAY ==
[2023-07-14 17:48] VITALS: BP 147/77; PULSE 97; RESP 20; TEMP 36.8; O2SAT 100; BMI 18.0
--- NOTE | 2023-07-14 17:54 | ED_ITS ---
<Statement entered by Chasity Snow DO - 07/14/23 21:41> I was consulted by the ALIRIO, and we discussed the complexity of the problems being addressed. I approved the treatment and management plan for this patient's care in the emergency department, thus performing a substantive portion of the medical decision making. Chasity Snow DO Discharge Plan Disposition Patient Disposition: Xfer Short-Term Hosp Condition: Serious Prescriptions Prescriptions: No Action insulin glargine [Lantus Solostar U-100 Insulin] 100 unit/mL (3 mL) insulin pen 10 unit SQ HS Qty: 15 2RF Rx Instructions: Poor Vision Humulin 70/30 U-100 KwikPen 100 unit/mL (70-30) insulin pen 4 unit SQ BID Qty: 15 2RF Rx Instructions: Poor Vision (DME) blood-glucose meter [Blood Glucose Monitoring] Kit See Rx Instructions .ROUTE .MEDSUPPLY Qty: 1 0RF Rx Instructions: BID (DME) Blood Glucose Test Strip See Rx Instructions .ROUTE .MEDSUPPLY Qty: 50 2RF Rx Instructions: BID tramadol 50 mg tablet 50 mg PO Q6H PRN (Reason: pain) Qty: 60 0RF citalopram 20 mg tablet See Rx Instructions .ROUTE .COMPLEX Qty: 90 1RF Dose Instruction: Take 1 Tablet by mouth once daily. Rx Instructions: Take 1 Tablet by mouth once daily. cetirizine 10 mg tablet See Rx Instructions .ROUTE .COMPLEX Qty: 30 2RF Dose Instruction: Take 1 Tablet by mouth once daily. Rx Instructions: Take 1 Tablet by mouth once daily. cyclobenzaprine 10 mg tablet See Rx Instructions .ROUTE .COMPLEX Qty: 60 0RF Dose Instruction: Take 1 Tablet by mouth 3 times daily for muscle spasms. Rx Instructions: Take 1 Tablet by mouth 3 times daily for muscle spasms. fluticasone propionate 50 mcg/actuation spray,suspension See Rx Instructions .ROUTE .COMPLEX Qty: 16 2RF Dose Instruction: Use 1 [place] in each nostril once daily. Rx Instructions: Use 1 [place] in each nostril once daily. lisinopril 10 mg tablet See Rx Instructions .ROUTE .COMPLEX Qty: 30 2RF Dose Instruction: Take 1 Tablet by mouth once daily. Rx Instructions: Take 1 Tablet by mouth once daily. famotidine 20 mg tablet See Rx Instructions .ROUTE .COMPLEX Qty: 30 2RF Dose Instruction: Take 1 Tablet by mouth once daily. Rx Instructions: Take 1 Tablet by mouth once daily. hydrochlorothiazide 25 mg tablet See Rx Instructions .ROUTE .COMPLEX Qty: 30 2RF Dose Instruction: Take 1 Tablet by mouth once daily. Rx Instructions: Take 1 Tablet by mouth once daily. cholecalciferol (vitamin D3) [Vitamin D3] 50 mcg (2,000 unit) capsule See Rx Instructions .ROUTE .COMPLEX Qty: 30 4RF Dose Instruction: Take 1 capsule by mouth once daily Rx Instructions: Take 1 capsule by mouth once daily ergocalciferol (vitamin D2) 1,250 mcg (50,000 unit) capsule See Rx Instructions .ROUTE .COMPLEX Qty: 7 2RF Dose Instruction: Take 1 capsule by mouth once weekly as needed for supplement Rx Instructions: Take 1 capsule by mouth once weekly as needed for supplement aspirin 81 mg tablet,delayed release (/EC) See Rx Instructions .ROUTE .COMPLEX Qty: 30 2RF Dose Instruction: TAKE 1 TABLET BY MOUTH ONCE DAILY Rx Instructions: TAKE 1 TABLET BY MOUTH ONCE DAILY atorvastatin 20 mg tablet See Rx Instructions .ROUTE .COMPLEX Qty: 30 2RF Dose Instruction: Take 1 Tablet by mouth once daily. Rx Instructions: Take 1 Tablet by mouth once daily. levothyroxine 75 mcg tablet See Rx Instructions .ROUTE .COMPLEX Qty: 30 2RF Dose Instruction: TAKE 1 TABLET BY MOUTH ONCE DAILY Rx Instructions: TAKE 1 TABLET BY MOUTH ONCE DAILY Thu - Thu AND TAKE 2 TABLETS EVERY Thursday Referrals Follow up/Referrals: Kavita Dalton APRN [Primary Care Provider] - See instructions Activity Restrictions/Add. Instructions Additional Instructions/Restrictions: To [facility] as a trauma alert for Dr. Contreras Clinical Impressions Clinical Impression: Blunt trauma to abdomen Qualifiers: Encounter type: initial encounter Qualified Code(s): S39.91XA - Unspecified injury of abdomen, initial encounter Blunt chest trauma Qualifiers: Encounter type: initial encounter Qualified Code(s): S29.8XXA - Other specified injuries of thorax, initial encounter Stand Alone Forms Stand Alone Forms: Work/School Release, Transfer Record - ED Discharge ED Provider: Chasity Snwo General Adult HPI General Chief complaint: PAIN Stated complaint: AO 07/12/23 1900 Injury left rib cage Time Seen by Provider: 07/14/23 17:31 Mode of Arrival: Ambulatory Source of Information: Patient Limitations: No Limitations Description of Symptoms (Recalled from ER Triage Doc. by RN): pt to ed c/o left rib pain. pt states she lost her balance and fell over a propane tank yesterday. pt denies hitting her head and denies LOC. History of Present Illness HPI narrative: Patient presents for evaluation of left anterior chest wall pain after a fall. Patient states that she tripped and fell on top of a propane cylinder in her home striking her left lower anterior chest. Patient reports that she had significant pain all night long and presents for evaluation. Patient has past medical history of previous colon cancer status posttreatment and now is being evaluated for painless jaundice and a questionable pancreatic head mass with most recent biopsy done Thursday at the [facility]. She also has a biliary stent placed in the same area. Patient denies cardiac chest pain shortness of breath but does state that it hurts to take a deep breath fever chills hemoptysis hematochezia melena nausea vomiting diarrhea. Related Data Previous Rx's Medication Instructions Recorded tramadol 50 mg tablet 50 mg PO Q6H PRN pain #60 tabs 09/25/22 cetirizine 10 mg tablet See Rx Instructions .Route 11/12/22 .COMPLEX #30 tabs cyclobenzaprine 10 mg tablet See Rx Instructions .Route 11/12/22 .COMPLEX #60 tabs blood sugar diagnostic (Blood #50 ea 01/28/23 Glucose Test strips) blood-glucose meter (Blood Glucose #1 ea 01/28/23 Monitoring kit) fluticasone propionate 50 See Rx Instructions .Route 01/28/23 mcg/actuation nasal .COMPLEX #16 grams spray,suspension insulin NPH-regular 70-30 U-100 4 unit (0.04 mL) SQ BID DM #15 mL 01/28/23 insulin 100 unit/mL subcutaneous pen (Humulin 70/30 U-100 KwikPen) insulin glargine 100 unit/mL (3 10 unit (0.1 mL) SQ HS DM #15 mL 01/28/23 mL) subcutaneous pen (Lantus Solostar U-100 Insulin) famotidine 20 mg tablet See Rx Instructions .Route 02/24/23 .COMPLEX #30 tabs hydrochlorothiazide 25 mg tablet See Rx Instructions .Route 02/24/23 .COMPLEX #30 tabs lisinopril 10 mg tablet See Rx Instructions .Route 02/24/23 .COMPLEX #30 tabs citalopram 20 mg tablet See Rx Instructions .Route 03/09/23 .COMPLEX #90 tabs cholecalciferol (vitamin D3) 50 See Rx Instructions .Route 03/25/23 mcg (2,000 unit) capsule (Vitamin .COMPLEX #30 caps D3) ergocalciferol (vitamin D2) 1,250 See Rx Instructions .Route 04/05/23 mcg (50,000 unit) capsule .COMPLEX #7 caps aspirin 81 mg tablet,delayed See Rx Instructions .Route 04/22/23 release .COMPLEX #30 tabs atorvastatin 20 mg tablet See Rx Instructions .Route 06/15/23 .COMPLEX #30 tabs levothyroxine 75 mcg tablet See Rx Instructions .Route 06/25/23 .COMPLEX #30 tabs Allergies Allergy/AdvReac Type Severity Reaction Status Date / Time No Known Allergies Allergy Verified 06/23/23 11:28 [facility] Disclaimer: The information contained in this section may have been updated after the patient was seen, as this information can be updated by other users. Medical History Jaundice Graves' disease in remission H/O colon cancer, stage IV HTN (hypertension), benign Hyperlipidemia Graves disease Colon cancer Surgical History H/O total hysterectomy Hx of appendectomy History of tonsillectomy and adenoidectomy History of repair of right rotator cuff Family History Brother Colon cancer Mother Colon cancer Social History Smoking Status: Current every day smoker alcohol intake: never substance use type: denies use current occupational status: unemployed Travel in the last 8 weeks: None household members: family housing: house ROS Obtained: Yes Systems reviewed as appropriate & no additional complaints except as documented Physical Exam General General appearance: alert and in no apparent distress Head Head exam: atraumatic Eye Eye exam: Present normal appearance, PERRL and EOMI; Absent jaundice ENT ENT exam: Present normal exam, normal oropharynx and mucous membranes moist Neck Neck exam: Present normal inspection and full ROM; Absent tenderness or lymphadenopathy Chest Chest inspection: Present normal inspection, symmetric chest wall rise and tenderness (Tender to palpation over the left lower anterior chest wall but no deformities contusions or ecchymosis noted) Respiratory Respiratory exam: Present normal lung sounds bilaterally; Absent respiratory distress, wheezes or accessory muscle use Cardiovascular Cardiovascular exam: Present regular rate, normal rhythm and normal heart sounds Abdominal Exam Abdominal exam: Present soft and normal bowel sounds; Absent tenderness, guarding or rebound Extremities Exam Extremities exam: Present normal inspection and full ROM Back Exam Back exam: Present normal inspection and full ROM; Absent tenderness Neurological Exam Neurological exam: Present alert, oriented X3 and CN II-XII intact Psychiatric Psychiatric exam: Present normal affect and normal mood Skin Skin exam: Present warm, dry and normal color Medical Decision Making Medical Records Medical records reviewed: Yes I reviewed the patient's medical records. Thomas Inquiry Pt receiving controlled substance: No Vital Signs: 07/14/23 17:48 Temperature 98.3 F Temperature Source Oral Pulse Rate [Left Radial] 97 H Respiratory Rate 20 Blood Pressure [Right Arm] 147/77 H Blood Pressure Mean [Right Arm] 100 02 Sat by Pulse Oximetry 100 Lab Data Lab results reviewed: Yes I reviewed the patient's lab results. Lab Results 07/14/23 18:18: WBC 17.2 H, RBC 3.09 L, Hgb 10.6 L, Hct 31.1 L, MCV 100.5 H, MCH 34.2 H, MCHC 34.1, RDW 15.8, Plt Count 190, MPV 10.7 H, Neut % (Auto) 86.9 H, L ymph % (Auto) 6.7 L, [place] % (Auto) 4.3, Eos % (Auto) 1.7, Baso % (Auto) 0.3, N eut # (Auto) 15.0 H, Lymph # (Auto) 1.2, [place] # (Auto) 0.7, Eos # (Auto) 0.3, Baso # (Auto) 0.1, Total Counted 100, Neutrophils % (Manual) 84 H, Band Neutrophils % 1.0, Lymphocytes % (Manual) 7 L, Monocytes % (Manual) 7, Eosinophils % (Manual) 1, Platelet Estimate Normal, Macrocytosis 1+, PT 11.4, INR 1.06, Sodium 132 L, Potassium 3.3 L, Chloride 98, Carbon Dioxide 26, Anion Gap 11.3, BUN 10, Creatinine 0.80, Estimated Creat Clear 56, Estimated GFR 73, Est GFR ( Amer) 89, Glucose 139 H, Calcium 9.4, Total Bilirubin 1.3, AST 21, ALT 17, Alkaline Phosphatase 143 H, Total Protein 7.3, Albumin 3.8, Globulin 3.5 H, Albumin/Globulin Ratio 1.1, Lipase 285, Procalcitonin 0.174 07/14/23 20:17: Urine Color Yellow, Urine Appearance Clear, Urine pH 6.5, Ur Specific [place] 1.010, Urine Protein 1+, Urine Glucose (UA) Negative, Urine Ketones 1+, Urine Blood Negative, Urine Nitrate Negative, Urine Bilirubin 1+ A, Urine Urobilinogen 1.0, Ur Leukocyte Esterase Negative, Urine RBC None, Urine WBC None, Ur Squamous Epith Cells 3-5, Urine Bacteria None 07/14/23 18:18 07/14/23 18:18 Orders (Tests/Meds): ED MEDICATIONS Generic Name Dose Route Start Last Admin Trade Name Freq PRN Reason Stop Dose Admin Sodium Chloride 10 ml 07/14/23 19:53 07/14/23 19:54 Sodium Chloride 0.9% 10ml Syr (Rad Only) IV 08/13/23 19:52 10 ml NEEDED PRN Administration Maintain IV Site Discontinued Medications Generic Name Dose Route Start Last Admin Trade Name Freq PRN Reason Stop Dose Admin Acetaminophen 1,000 mg 07/14/23 17:55 07/14/23 18:21 Acetaminophen 1,000mg/100ml Vial IV 07/14/23 17:56 1,000 mg ONCE ONE Administration Iopamidol 100 ml 07/14/23 19:53 07/14/23 19:54 Iopamidol-370 (76%);100ml Bottle IV 07/14/23 19:54 100 ml ONCE ONE Administration Sodium Chloride 50 ml 07/14/23 19:53 07/14/23 19:54 0.9 % Sodium Chloride 50 Ml Vial IV 07/14/23 19:54 50 ml ONCE ONE Administration ORDERS Category Date Time Status CT angio abdomen pelvis Stat Cat Scan 07/14/23 17:[address] angio chest - dissection Stat Cat Scan 07/14/23 17:[address] cervical spine wo con Stat Cat Scan 07/14/23 17:[address] head/brain wo con Stat Cat Scan 07/14/23 17:55 Completed CBC w/Auto Diff [Complete Blood Count Auto Diff] Stat Lab 07/14/23 18:18 Completed CMP [Comprehensive Metabolic Panel] Stat Lab 07/14/23 18:18 Completed INR [Prothrombin Time INR] Stat Lab 07/14/23 18:18 Completed Lipase Stat Lab 07/14/23 18:18 Completed Procalcitonin Stat Lab 07/14/23 18:18 Completed UA [Urinalysis and Microscopic] Stat Lab 07/14/23 20:17 Completed Medical Decision Narrative: In summary patient is a 62-year-old female who presents to the emergency department for evaluation of left chest wall pain after an accidental fall. Patient is hemodynamically stable upon arrival, afebrile. Physical exam is remarkable for tenderness palpation over the left anterior lower rib border without evidence of ecchymosis skin injury hematoma deformities. Differential diagnosis includes contusion versus rib fracture versus lung contusion versus splenic injury etc. Initial workup will be conducted with hematologic labs CT scan of the head neck chest and abdomen. Initial interventions include Tylenol initially. Initial workup reviewed by me shows an elevated white count with a left shift but no known source currently of infection and the patient is afebrile, lipase is detectable but within normal limits, Potassium was 3.3 which is being repleted procalcitonin was 0.174 and urine microscopic shows no bacteria no whites no reds. CT imaging via my informal review does not show any acute intrathoracic or abdominal abnormalities however radiology reads a aortic abnormality and mesenteric stranding but no hollow viscus perforation or free air noted. Upon repeat evaluation patient had complete resolution of her discomfort after administration of Tylenol. Given this I had an interactive discussion with the [facility] [place] regarding patient management. They have accepted the patient to [facility] as a trauma alert. Critical Care Critical Care Time Critical Care Time: Yes Attestation: On 07/14/23, the high probability of a clinically significant, sudden or life threatening deterioration of the following system(cardiovascular, gastrointestinal) required my full and direct attention, intervention and personal management. The time I documented below is in addition to time spent performing reported procedures but includes the following listed in this critical care notation. Total Time Total Critical Care Time: 30
--- NOTE | 2023-07-14 17:55 | CT_ITS ---
PROCEDURE INFORMATION: Exam: CTA Abdomen and Pelvis With Contrast Exam date and time: 07/14/2023 7:48 PM Age: 62 years old Clinical indication: Pain; Additional info: Trauma, critical injury suspected TECHNIQUE: Imaging protocol: Computed tomographic angiography of the abdomen and pelvis with contrast. Exam focused on the arteries. 3D rendering (Not supervised by radiologist): MIP and/or 3D reconstructed images were created by the technologist. Radiation optimization: All CT scans at this facility use at least one of these dose optimization techniques: automated exposure control; mA and/or kV adjustment per patient size (includes targeted exams where dose is matched to clinical indication); or iterative reconstruction. Contrast material: ISOVUE; Contrast volume: 100 ml; Contrast route: INTRAVENOUS (IV); COMPARISON: CT ABDOMEN PELVIS W CON 06/03/2023 1:10 PM FINDINGS: Tubes, catheters and devices: Internal biliary drain remains in place. Aorta: Moderate mural thrombus and atherosclerotic calcification throughout the aorta. No evidence of aneurysm or dissection. Celiac trunk and mesenteric arteries: There is a large area of significant mesenteric stranding in the mid upper abdomen centered about the superior mesenteric artery. Slight stenosis of the superior mesenteric artery appears similar to previous. No direct evidence of arterial injury. Renal arteries: No occlusion or significant stenosis. Right iliac arteries: No occlusion or significant stenosis. Left iliac arteries: No occlusion or significant stenosis. Liver: No mass. Gallbladder and bile ducts: Unremarkable. No calcified stones. No ductal dilation. Pancreas: Stable diffuse pancreatic ductal dilation. Pancreas is otherwise unremarkable. Spleen: Unremarkable. No splenomegaly. Adrenal glands: Unremarkable. No mass. Kidneys and ureters: Moderate left hydronephrosis. Appearance soft tissue density filling defect in the proximal left ureter may represent small intraureteral mass or hematuria. Right kidney appears normal. Stomach and bowel: Moderate fecal retention throughout the colon. No bowel wall thickening or evidence of bowel obstruction. Appendix: No evidence of appendicitis. Intraperitoneal space: Unremarkable. No free air. No significant fluid collection. Lymph nodes: Unremarkable. No enlarged lymph nodes. Urinary bladder: Unremarkable. No mass. Reproductive: Uterus is surgically absent. No adnexal abnormality. Bones/joints: Mild degenerative changes of the lumbar spine. No vertebral body compression or acute fracture. Soft tissues: Unremarkable. IMPRESSION: 1. Significant mesenteric stranding in the mid upper abdomen suggesting mesenteric injury. No direct evidence of arterial injury in this area. Mesenteric stranding appears to produce significant compression of the left renal vein. 2. Mild left hydronephrosis to the level apparent filling defect in the proximal ureter which may represent ureteral mass such as transitional cell carcinoma or hematuria. No direct evidence of renal injury. THIS REPORT CONTAINS FINDINGS THAT MAY BE CRITICAL TO PATIENT CARE. The findings were verbally communicated via telephone conference with at 8:41 PM EDT on 07/14/2023. The findings were acknowledged and understood.
--- NOTE | 2023-07-14 17:55 | CT_ITS ---
PROCEDURE INFORMATION: Exam: CTA Chest With Contrast Exam date and time: 07/14/2023 7:48 PM Age: 62 years old Clinical indication: Pain; Additional info: Trauma, critical injury suspected TECHNIQUE: Imaging protocol: Computed tomographic angiography of the chest with contrast. Exam focused on the arteries. 3D rendering (Not supervised by radiologist): MIP and/or 3D reconstructed images were created by the technologist. Radiation optimization: All CT scans at this facility use at least one of these dose optimization techniques: automated exposure control; mA and/or kV adjustment per patient size (includes targeted exams where dose is matched to clinical indication); or iterative reconstruction. Contrast material: ISOVUE; Contrast volume: 100 ml; Contrast route: INTRAVENOUS (IV); COMPARISON: CT LUNG SCREENING 06/18/2023 3:02 PM FINDINGS: Tubes, catheters and devices: Right IJ infusion port in place. Pulmonary arteries: Normal. No pulmonary emboli. Aorta: On sagittal reconstruction images (series 602, images 50-52) there is focal wall irregularity along the inferior margin of the aortic arch raising concern for minimal aortic injury. No evidence of aortic aneurysm or dissection. Scattered small atheromatous plaques are noted elsewhere throughout the aorta. Lungs: Unremarkable. No consolidation. No masses. Pleural spaces: Unremarkable. No pneumothorax. No pleural effusion. Heart: Unremarkable. No cardiomegaly. No pericardial effusion. Lymph nodes: Unremarkable. No enlarged lymph nodes. Bones/joints: Significant degenerative changes and orthopedic hardware noted in the lower cervical spine. No vertebral body compression. No acute fracture. Soft tissues: Unremarkable. IMPRESSION: Focal mural irregularity along the inferior margin of the aortic arch. In the setting of recent trauma differential diagnosis would include minimal aortic injury versus small atheroma.
--- NOTE | 2023-07-14 17:55 | CT_ITS ---
PROCEDURE INFORMATION: Exam: CT Cervical Spine Without Contrast Exam date and time: 07/14/2023 7:43 PM Age: 62 years old Clinical indication: Pain; Additional info: Trauma, critical injury suspected TECHNIQUE: Imaging protocol: Computed tomography of the cervical spine without contrast. Radiation optimization: All CT scans at this facility use at least one of these dose optimization techniques: automated exposure control; mA and/or kV adjustment per patient size (includes targeted exams where dose is matched to clinical indication); or iterative reconstruction. COMPARISON: MR CERVICAL SPINE WO CON 05/01/2022 10:07 AM FINDINGS: Bones: Postsurgical changes of C3-C7 anterior cervical discectomy and fusion. Grossly intact surgical hardware. No acute fracture. Dextroconvex curvature of the cervicothoracic spine. Minimal anterolisthesis C2 on C3. Maintained craniocervical junction. Multilevel degenerative changes. Varying degrees of neural foraminal narrowing. [id number] spinal canal stenosis of the C6 vertebral body level. Lungs: Lung apices are normal. Soft tissues: Partially visualized right chest wall port catheter. IMPRESSION: No acute osseous findings.
--- NOTE | 2023-07-14 17:55 | CT_ITS ---
PROCEDURE INFORMATION: Exam: CT Head Without Contrast Exam date and time: 07/14/2023 7:40 PM Age: 62 years old Clinical indication: Pain; Other: Trauma; Additional info: Trauma, critical injury suspected TECHNIQUE: Imaging protocol: Computed tomography of the head without contrast. Radiation optimization: All CT scans at this facility use at least one of these dose optimization techniques: automated exposure control; mA and/or kV adjustment per patient size (includes targeted exams where dose is matched to clinical indication); or iterative reconstruction. COMPARISON: MR CERVICAL SPINE WO CON 05/01/2022 10:07 AM FINDINGS: Brain: No acute intracranial hemorrhage, midline shift or mass effect. Mild hypodensities within the cerebral white matter most consistent with chronic small-vessel ischemic changes. Cerebral ventricles: No ventriculomegaly. Paranasal sinuses: Visualized sinuses are unremarkable. No fluid levels. Mastoid air cells: Visualized mastoid air cells are well aerated. Bones: Unremarkable. No acute fracture. Soft tissues: Unremarkable. IMPRESSION: No acute intracranial findings.
[2023-07-14] MEDS: ACETAMINOPHEN 1,000MG/100ML VIAL 1000 MG IV (18:21)
[2023-07-14 18:27] LABS: Basophils # 0.1 K/mm3 (0-0.2); Basophils % 0.3 % (0.1-2.0); Eosinophils # 0.3 K/mm3 (0.0-0.4); Eosinophils % 1.7 % (0.1-12.0); Hematocrit 31.1 % (37.0-47.0); Hemoglobin 10.6 g/dL (12.2-16.2); Lymphocytes # 1.2 K/mm3 (0.7-4.5); Lymphocytes % 6.7 % (10-50); Mean Corpuscular HGB Conc 34.1 g/dL (31.8-35.4); Mean Corpuscular Hemoglobin 34.2 pg (27.0-31.2); Mean Corpuscular Volume 100.5 fl (81-99); Mean Platelet Volume 10.7 fl (7.4-10.4); Monocytes # 0.7 K/mm3 (0.1-1.0); Monocytes % 4.3 % (1.7-9.3); Neutrophils % 86.9 % (37.0-80.0); Platelet Count 190 K/mm3 (142-424); Red Blood Count 3.09 M/mm3 (4.20-5.40); Red Cell Distribution Width 15.8 % (11.5-17.5); White Blood Count 17.2 K/mm3 (4.8-10.8)
[2023-07-14 18:30] LABS: MANUAL DIFFERENTIAL MANUAL DIFFERENTIAL (MANUAL DIFF)
[2023-07-14 18:32] LABS: Chloride 98 mmol/L (98-107); Potassium 3.3 mmoL/L (3.5-5.1); Sodium 132 mmol/L (136-145)
[2023-07-14 18:34] LABS: Alanine Aminotransferase 17 U/L (12-78); Albumin Level 3.8 g/dl (3.5-5.0); Albumin/Globulin Ratio 1.1 (1.1-1.8); Alkaline Phosphatase 143 U/L (38-126); Anion Gap 11.3 mEq/L (5-15); Aspartate Amino Transferase 21 U/L (14-36); Bilirubin,Total 1.3 mg/dl (0.2-1.3); Blood Urea Nitrogen 10 mg/dl (7-17); Calcium 9.4 mg/dl (8.4-10.2); Carbon Dioxide 26 mmol/L (22.0-30.0); Creatinine Clearance Estimated 56 mL/min (50-200); Estimated Glomerular Filt Rate 73 ml/min (>60); GFR (African American) 89 ML/MIN (>60); Globulin 3.5 g/dL (1.3-3.2); Glucose 139 mg/dl (74-100); Total Protein,Serum 7.3 g/dl (6.3-8.2)
[2023-07-14 18:37] LABS: Eosinophils % 1 % (0-3); INR 1.06 (0.9-1.1); Lymphocytes % 7 % (10-50); Monocytes % 7 % (2-9); Neutrophils % 84 % (42-76); Prothrombin Time 11.4 seconds (10.1-12.5); Total Cells Counted 100
[2023-07-14 18:38] LABS: Macrocytosis 1+; Platelet Estimate Normal
[2023-07-14 19:12] LABS: Procalcitonin 0.174 ng/mL (0.0-2.0)
[2023-07-14] MEDS: 0.9 % SODIUM CHLORIDE 50 ML VIAL IV (19:54)
[2023-07-14] MEDS: IOPAMIDOL-370 (76%);100ML BOTTLE 100 ML IV (19:54)
[2023-07-14] MEDS: SODIUM CHLORIDE 0.9% 10ML SYR (RAD ONLY) 10 ML IV (19:54)
[2023-07-14 20:22] LABS: Microscopic, Urine URINE MICROSCOPIC (MICROSCOPIC)
[2023-07-14 20:26] LABS: Appearance,Urine CLEAR (Clear); Blood, Urine Negative (Negative); Color,Urine YELLOW (Yellow); Glucose,Urine (UA) Negative (Negative); Ketones,Urine 1+ (Negative); Leukocyte Esterase,Urine Negative (Negative); Nitrate,Urine Negative (Negative); PH,Urine 6.5 (5.0-8.5); Protein,Urine 1+ (Negative)
[2023-07-14 20:45] LABS: Bilirubin,Urine 1+ (Negative)
[2023-07-14 21:03] LABS: Lipase 285 U/L (23-300)
--- NOTE | 2023-07-14 21:24 | PC.NURSE ---
pt accepted to for ED to ED transfer. Accepting physician - Diane
--- NOTE | 2023-07-14 21:45 | PC.NURSE ---
Nurse to nurse report given to Earnestine MILTON at ER
--- NOTE | 2023-07-14 21:48 | PC.NURSE ---
notified [facility] that pt is ready for transport to ER
[2023-07-14 21:51] VITALS: BP 136/78; PULSE 78; RESP 18; TEMP 36.5; O2SAT 99
== END 2023-07-14 22:11 | disposition short-term general hospital (02) ==
PROVIDERS: Physician Assistant; Emergency Provider Emergency Medicine; PCP Nurse Practitioner
DX: S39.81XA Other specified injuries of abdomen, initial encounter (principal); S29.8XXA Other specified injuries of thorax, initial encounter; R07.1 Chest pain on breathing; E87.1 Hypo-osmolality and hyponatremia; E87.6 Hypokalemia; I10 Essential (primary) hypertension; E78.5 Hyperlipidemia, unspecified; F17.210 Nicotine dependence, cigarettes, uncomplicated; W18.39XA Other fall on same level, initial encounter
CPT/HCPCS: 70450; 71275; 72125; 74174; 80053; 81001; 83690; 84145; 85007; 85025; 85610; 96374; 99291; J0131; Q9967

== ENCOUNTER 2024-01-21 18:23 | Emergency (ER) | payer OTHER, SELFPAY ==
[2024-01-21] VITALS (12 sets, daily range): BP systolic 119–157; BP diastolic 66–108; PULSE 56–91; RESP 14–18; TEMP 36.6–36.9; O2SAT 99–100; BMI 12.9; BMI 11.6
--- NOTE | 2024-01-21 18:24 | HMH.EDGENADL ---
Discharge Plan Disposition Patient Disposition: Home, Self-Care Condition: Good Prescriptions Prescriptions: No Action insulin glargine [Lantus Solostar U-100 Insulin] 100 unit/mL (3 mL) insulin pen 10 unit SQ HS Qty: 15 2RF Rx Instructions: Poor Vision Humulin 70/30 U-100 KwikPen 100 unit/mL (70-30) insulin pen 4 unit SQ BID Qty: 15 2RF Rx Instructions: Poor Vision (DME) blood-glucose meter [Blood Glucose Monitoring] Kit See Rx Instructions .ROUTE .MEDSUPPLY Qty: 1 0RF Rx Instructions: BID (DME) Blood Glucose Test Strip See Rx Instructions .ROUTE .MEDSUPPLY Qty: 50 2RF Rx Instructions: BID methocarbamol 500 mg tablet PO ONCE pantoprazole 40 mg tablet,delayed release (DR/EC) PO ondansetron 4 mg tablet,disintegrating PO DAILY (DME) lancets [FreeStyle Lancets] 28 gauge misc See Rx Instructions .ROUTE .MEDSUPPLY Qty: 100 Rx Instructions: As directed alcohol swabs [Easy Touch Alcohol Prep Pads] Pads, Medicated topical (DME) pen needle, diabetic [BD Ultra-Fine Mini Pen Needle] 31 gauge x 3/16 needle See Rx Instructions .ROUTE .MEDSUPPLY Qty: 1200 Rx Instructions: As directed tramadol 50 mg tablet 50 mg PO Q6H PRN (Reason: pain) Qty: 120 5RF tramadol 50 mg tablet 50 mg PO Q6H PRN (Reason: pain) Qty: 60 0RF cetirizine 10 mg tablet See Rx Instructions .ROUTE .COMPLEX Qty: 30 2RF Dose Instruction: Take 1 Tablet by mouth once daily. Rx Instructions: Take 1 Tablet by mouth once daily. fluticasone propionate 50 mcg/actuation spray,suspension See Rx Instructions .ROUTE .COMPLEX Qty: 16 2RF Dose Instruction: Use 1 [place] in each nostril once daily. Rx Instructions: Use 1 [place] in each nostril once daily. aspirin 81 mg tablet,delayed release (DR/EC) See Rx Instructions .ROUTE .COMPLEX Qty: 30 2RF Dose Instruction: TAKE 1 TABLET BY MOUTH ONCE DAILY Rx Instructions: TAKE 1 TABLET BY MOUTH ONCE DAILY cholecalciferol (vitamin D3) [Vitamin D3] 50 mcg (2,000 unit) capsule See Rx Instructions .ROUTE .COMPLEX Qty: 30 4RF Dose Instruction: Take 1 capsule by mouth once daily Rx Instructions: Take 1 capsule by mouth once daily levothyroxine 75 mcg tablet See Rx Instructions .ROUTE .COMPLEX Qty: 30 2RF Dose Instruction: TAKE 1 TABLET BY MOUTH ONCE DAILY Rx Instructions: TAKE 1 TABLET BY MOUTH ONCE DAILY Thu - Thu AND TAKE 2 TABLETS EVERY Thursday citalopram 20 mg tablet See Rx Instructions .ROUTE .COMPLEX Qty: 90 1RF Dose Instruction: Take 1 Tablet by mouth once daily. Rx Instructions: Take 1 Tablet by mouth once daily. atorvastatin 20 mg tablet See Rx Instructions .ROUTE .COMPLEX Qty: 30 2RF Dose Instruction: Take 1 Tablet by mouth once daily. Rx Instructions: Take 1 Tablet by mouth once daily. lisinopril 10 mg tablet See Rx Instructions .ROUTE .COMPLEX Qty: 30 2RF Dose Instruction: Take 1 Tablet by mouth once daily. Rx Instructions: Take 1 Tablet by mouth once daily. hydrochlorothiazide 25 mg tablet See Rx Instructions .ROUTE .COMPLEX Qty: 30 2RF Dose Instruction: Take 1 Tablet by mouth once daily. Rx Instructions: Take 1 Tablet by mouth once daily. famotidine 20 mg tablet See Rx Instructions .ROUTE .COMPLEX Qty: 30 2RF Dose Instruction: Take 1 Tablet by mouth once daily. Rx Instructions: Take 1 Tablet by mouth once daily. ergocalciferol (vitamin D2) 1,250 mcg (50,000 unit) capsule See Rx Instructions .ROUTE .COMPLEX Qty: 4 2RF Dose Instruction: Take 1 Capsule by mouth once weekly as needed for supplement. Rx Instructions: Take 1 Capsule by mouth once weekly as needed for supplement. hydrocodone-acetaminophen 7.5-325 mg tablet 1 tab PO BID PRN (Reason: pain) Qty: 60 0RF Rx Instructions: for severe pain not relieved by tramadol Referrals Follow up/Referrals: Kavita Dalton APRN [Primary Care Provider] - See instructions Activity Restrictions/Add. Instructions Additional Instructions/Restrictions: To the [facility] emergency department in care of Dr. Brewer Clinical Impressions Clinical Impression: Protein-calorie malnutrition, severe, Hypokalemia, Ketosis, IPMN (intraductal papillary mucinous neoplasm) Instructions Patient Instructions: DI for Diarrhea and Traveler's Diarrhea -- Adult, DI for Diarrhea and Traveler's Diarrhea -- Child, DI for Nausea -- Adult, DI for Nausea -- Child Print Language Print Language: Luxembourgish Discharge ED Provider: Fred Escobedo General Adult HPI <LAVERN Garcia - Last Filed: 01/21/24 21:00> General Chief complaint: Nausea/Vomiting/Diarrhea Stated complaint: n/v Time Seen by Provider: 01/21/24 18:24 History of Present Illness HPI narrative: Patient presents for multiple complaints but primarily weakness nausea vomiting and loose stool. Patient has a very complex past medical history that includes stage IV colon cancer status post resection in 2011 with chemoradiation, Graves' disease, hypertension, reported diabetes mellitus, and intraductal papillary mucinous neoplasm of the pancreas who underwent an attempted Whipple procedure on 09/23/2023 at the [facility] but it was aborted because patient had pancreatitis on operation. She underwent exploratory laparotomy cholecystectomy and hepaticojejunostomy with Dr. Johnson [facility]. She was ultimate discharged on 09/28/2023. On 10/09/2023 she return to clinic and was found to have a white count of 29,000 and a potassium of 2.7 and subsequently was admitted to the hospital again. An NG tube was placed and then started on TPN. Patient had developed a multiloculated fluid collection within the gallbladder fossa and gastrohepatic ligament and underwent IR drain placement on 10/11. Patient had amylase in the draining fluid so plan was for delayed removal of the drains. Patient was unable to tolerate a regular diet during her stay and thus a GJ tube was placed by gastroenterology. By the time of discharge she was tolerating a full liquid diet but was supposed to start supplemental feedings through her GJ tube and patient was discharged on 10/27/2023. Patient was due to follow-up on 10/30/2023, a follow-up which she did not keep due to lack of transportation. In the interval since patient has gone to a different hospital and subsequently not admitted due to pain and failure to thrive. Patient has not been utilizing her GJ tube for feeds and essentially is minimally taking an appropriate kilocalories. Patient has lost 5 kg from her discharge weight. Today patient complains of pain all over nonspecifically, she denies chest pain shortness of breath fever chills hemoptysis hematochezia melena hematemesis. She reports today that she was too weak to get out of bed. That is her primary relation for coming to the hospital today is the weakness. Related Data Home Medications ?Medication ?Instructions ?Recorded ?Confirmed alcohol swabs (Easy Touch Alcohol pad topical 11/06/23 11/06/23 Prep Pads) lancets 28 gauge (FreeStyle #100 ea 11/06/23 11/06/23 Lancets) methocarbamol 500 mg tablet mg PO ONCE 11/06/23 11/06/23 ondansetron 4 mg disintegrating mg PO DAILY 11/06/23 11/06/23 tablet pantoprazole 40 mg tablet,delayed mg PO 11/06/23 11/06/23 release pen needle, diabetic 31 gauge x #1,200 ea 11/06/23 11/06/2316 (BD Ultra-Fine Mini Pen Needle) Previous Rx's ?Medication ?Instructions ?Recorded tramadol 50 mg tablet 50 mg PO Q6H PRN pain #60 tabs 09/25/22 cetirizine 10 mg tablet See Rx Instructions .Route 11/12/22 .COMPLEX #30 tabs blood sugar diagnostic (Blood #50 ea 01/28/23 Glucose Test strips) blood-glucose meter (Blood Glucose #1 ea 01/28/23 Monitoring kit) fluticasone propionate 50 See Rx Instructions .Route 01/28/23 mcg/actuation nasal .COMPLEX #16 grams spray,suspension insulin NPH-regular 70-30 U-100 4 unit (0.04 mL) SQ BID DM #15 mL 01/28/23 insulin 100 unit/mL subcutaneous pen (Humulin 70/30 U-100 KwikPen) insulin glargine 100 unit/mL (3 10 unit (0.1 mL) SQ HS DM #15 mL 01/28/23 mL) subcutaneous pen (Lantus Solostar U-100 Insulin) aspirin 81 mg tablet,delayed See Rx Instructions .Route 04/22/23 release .COMPLEX #30 tabs cholecalciferol (vitamin D3) 50 See Rx Instructions .Route 08/05/23 mcg (2,000 unit) capsule (Vitamin .COMPLEX #30 caps D3) citalopram 20 mg tablet See Rx Instructions .Route 09/01/23 .COMPLEX #90 tabs levothyroxine 75 mcg tablet See Rx Instructions .Route 09/01/23 .COMPLEX #30 tabs atorvastatin 20 mg tablet See Rx Instructions .Route 10/28/23 .COMPLEX #30 tabs tramadol 50 mg tablet 50 mg PO Q6H PRN pain #120 tabs 11/06/23 famotidine 20 mg tablet See Rx Instructions .Route 12/09/23 .COMPLEX #30 tabs hydrochlorothiazide 25 mg tablet See Rx Instructions .Route 12/09/23 .COMPLEX #30 tabs lisinopril 10 mg tablet See Rx Instructions .Route 12/09/23 .COMPLEX #30 tabs ergocalciferol (vitamin D2) 1,250 See Rx Instructions .Route 01/05/24 mcg (50,000 unit) capsule .COMPLEX #4 caps hydrocodone 7.5 mg-acetaminophen 1 tab PO BID PRN pain #60 tabs 01/07/24 325 mg tablet Allergies Allergy/AdvReac Type Severity Reaction Status Date / Time No Known Allergies Allergy Verified 11/06/23 13:54 PFSH <ALVERN Garcia - Last Filed: 01/21/24 21:00> PFS Disclaimer: The information contained in this section may have been updated after the patient was seen, as this information can be updated by other users. Medical History Jaundice Graves' disease in remission H/O colon cancer, stage IV HTN (hypertension), benign Hyperlipidemia Graves disease Colon cancer Surgical History H/O total hysterectomy Hx of appendectomy History of tonsillectomy and adenoidectomy History of repair of right rotator cuff Family History Brother Colon cancer Mother Colon cancer Social History Smoking Status: Current every day smoker alcohol intake: never substance use type: denies use current occupational status: unemployed household members: family housing: house Other Medical History Have you received the Pneumonia Vaccine: Yes <LAVERN Garcia - Last Filed: 01/21/24 21:00> ROS Obtained: Yes Systems reviewed as appropriate & no additional complaints except as documented Physical Exam <LAVERN Garcia - Last Filed: 01/21/24 21:00> General General appearance: alert and in no apparent distress Respiratory Respiratory exam: Present normal lung sounds bilaterally Cardiovascular Cardiovascular exam: Present regular rate; Absent normal rhythm Neurological Exam Neurological exam: Present alert and oriented X3 Medical Decision Making <LAVERN Garcia - Last Filed: 01/21/24 21:00> Medical Records Medical records reviewed: Yes I reviewed the patient's medical records. Screening: Per USPSTF and CDC recommendations, given the prevalence of disease in our region, it is our hospital?s policy to screen for HIV and viral Hepatitis for all patients aged 18 and over and those with ongoing risk factors. Thomas Inquiry Pt receiving controlled substance: No Vital Signs: 01/21/24 18:23 01/21/24 18:25 01/21/24 18:30 Temperature 98.5 F Temperature Source Oral Pulse Rate 88 91 H Pulse Rate [Left] 91 H Respiratory Rate 18 Blood Pressure 137/108 H 119/84 Blood Pressure [Left Arm] 119/84 Blood Pressure Mean Blood Pressure Mean [Left Arm] 95 02 Sat by Pulse Oximetry 100 99 100 Oxygen Delivery Method Room Air Room Air 01/21/24 19:00 01/21/24 19:30 01/21/24 20:00 Temperature Temperature Source Pulse Rate 84 78 68 Pulse Rate [Left] Respiratory Rate Blood Pressure 136/81 133/79 140/74 Blood Pressure [Left Arm] Blood Pressure Mean 94 Blood Pressure Mean [Left Arm] 02 Sat by Pulse Oximetry 100 99 100 Oxygen Delivery Method Room Air 01/21/24 20:30 Temperature Temperature Source Pulse Rate 61 Pulse Rate [Left] Respiratory Rate 14 Blood Pressure 143/66 H Blood Pressure [Left Arm] Blood Pressure Mean Blood Pressure Mean [Left Arm] 02 Sat by Pulse Oximetry 100 Oxygen Delivery Method Lab Data Lab results reviewed: Yes I reviewed the patient's lab results. Lab Results 01/21/24 19:39: WBC 13.0 H, RBC 4.28, Hgb 13.7, Hct 40.2, MCV 94.0, MCH 31.9 H, MCHC 34.0, RDW 14.1, Plt Count 301, MPV 9.4, Neut % (Auto) 86.3 H, Lymph % (Auto) 8.3 L, [place] % (Auto) 4.6, Eos % (Auto) 0.1, Baso % (Auto) 0.6, Neut # (Auto) 11.2 H, Lymph # (Auto) 1.1, [place] # (Auto) 0.6, Eos # (Auto) 0.0, Baso # (Auto) 0.1, Total Counted 100, Neutrophils % (Manual) 85 H, Lymphocytes % (Manual) 11, Monocytes % (Manual) 4, Platelet Estimate Normal, RBC Morphology Normal, PT 10.9, INR 0.97, Sodium 133 L, Potassium 2.1 L*, Chloride 94 L, Carbon Dioxide 25, Anion Gap 16.1 H, BUN 11, Creatinine 0.60, Estimated Creat Clear 30, Estimated GFR 102, Est GFR ( Amer) 123, Glucose 232 H, Lactate 1.3, Calcium 8.9, Phosphorus 3.0, Magnesium 1.5 L, Total Bilirubin 0.6, AST 21, ALT 13, Alkaline Phosphatase 104, Total Protein 6.5, Albumin 3.5, Globulin 3.0, Albumin/Globulin Ratio 1.2, Lipase 221, TSH 7.26 H, Free T4 Index 2.1 L, Thyroxine (T4) 6.2, T3 Uptake 34, Acetone Level Moderate, HIV 1&2 Antibody Rapid Nonreactive 01/21/24 19:39 01/21/24 19:39 Orders (Tests/Meds): ED MEDICATIONS Generic Name Dose Route Start Last Admin Trade Name Freq PRN Reason Stop Dose Admin Potassium Chloride/Water 100 mls @ 50 mls/hr 01/21/24 20:05 01/21/24 20:19 Potassium Chloride 20meq/100ml Ivpb IV 01/22/24 00:04 50 mls/hr Q2H MARIA LUZ Administration Magnesium Sulfate 2 gm in 50 mls @ 50 mls/hr 01/21/24 20:52 Magnesium Sulfate 2gm/50ml Premix IV 01/21/24 21:51 ONCE ONE Discontinued Medications Generic Name Dose Route Start Last Admin Trade Name Freq PRN Reason Stop Dose Admin Acetaminophen 1,000 mg 01/21/24 18:53 01/21/24 19:23 Acetaminophen 1,000mg/100ml Vial IV 01/21/24 18:54 1,000 mg ONCE ONE Administration Sodium Chloride 1,000 mls @ 999 mls/hr 01/21/24 18:53 01/21/24 19:23 Sod Chlor 0.9% 1000ml Bag IV 01/21/24 19:53 999 mls/hr .Q1H1M ONE Administration Iopamidol 75 ml 01/21/24 20:19 01/21/24 20:20 Iopamidol-370 (76%);100ml Bottle IV 01/21/24 20:20 75 ml ONCE ONE Administration Potassium Chloride 40 meq 01/21/24 20:05 01/21/24 20:19 Potassium Chloride 20meq/15ml Udc G-TUBE 01/21/24 20:06 40 meq ONCE ONE Administration Sodium Chloride 10 ml 01/21/24 20:19 01/21/24 20:20 Sodium Chloride 0.9% 10ml Syr (Rad Only) IV 01/21/24 20:20 10 ml ONCE ONE Administration ORDERS Category Date Time Status CT abdomen pelvis w con Stat Cat Scan 01/21/24 18:54 Taken Acetone, Serum (Rapid) Stat Lab 01/21/24 19:39 Completed CBC w/Auto Diff [Complete Blood Count Auto Diff] Stat Lab 01/21/24 19:39 Completed CMP [Comprehensive Metabolic Panel] Stat Lab 01/21/24 19:39 Completed HIV (1&2) Antibody Rapid Stat Lab 01/21/24 19:39 Completed Hep C Ab with Reflex to RNA Stat Lab 01/21/24 19:39 Received INR [Prothrombin Time INR] Stat Lab 01/21/24 19:39 Completed Lactic Acid Stat Lab 01/21/24 19:39 Completed Lipase Stat Lab 01/21/24 19:39 Completed Magnesium Stat Lab 01/21/24 19:39 Completed Phosphorous Stat Lab 01/21/24 19:39 Completed Thyroid Panel Stat Lab 01/21/24 19:39 Completed UA [Urinalysis and Microscopic] Stat Lab 01/21/24 18:53 Ordered Medical Decision Narrative: In summary patient is a 63-year-old unwell appearing chronically ill-appearing cachectic female who presents to the emergency department for evaluation of multiple complaints but primarily weakness and nausea vomiting and loose stool but not diarrhea.. Patient is initially normotensive with a blood pressure 119/84 satting at 100% on room air breathing 18 times a minute upon arrival, afebrile. Physical exam reveals a severely cachectic 63-year-old female with skin tenting diffuse myalgias but no focal pain. She is generally tender to palpation in the abdomen bowel sounds are normal active. Drain sites are clean dry and intact there is no drainage in the IR drains there is no bag attached to her GJ tube.. Differential diagnosis includes severe protein calorie malnutrition versus cancer recurrence versus failure to thrive versus electrolyte imbalance etc. Initial workup will be conducted with hematologic labs CT scan of the abdomen pelvis and urinalysis.. Initial interventions include crystalloid bolus Tylenol and Zofran for now. Initial workup reviewed by me shows patient has a critical hypokalemia with U waves on her twelve-lead EKG, her white count is 13,000 with a normal H&H and absolute neutrophil count of 11.2 INR 0.97, sodium is 133 chloride 94 anion gap of 16.1 with CO2 serum of 25 a glucose of 232 back of 1.5 Phos of 3.0 calcium 8.9 lactate of 1.3 albumin is 3.5 with a moderate amount of acetone in serum. Given her gap I am not concerned for DKA at this time. My informal interpretation of CT scan abdomen pelvis shows the known cystic neoplasm in the head of the pancreas along with other smaller ones but otherwise no acute intra-abdominal processes are seen currently prior to radiology read. Given this I have reached out to the [facility] [place]. I discussed patient management with the transfer center physician Dr. Brewer and she has been accepted to the [place] emergency department for further evaluation and care. <Fred Escobedo MD - Last Filed: 01/21/24 21:08> Vital Signs: 01/21/24 18:23 01/21/24 18:25 01/21/24 18:30 Temperature 98.5 F Temperature Source Oral Pulse Rate 88 91 H Pulse Rate [Left] 91 H Respiratory Rate 18 Blood Pressure 137/108 H 119/84 Blood Pressure [Left Arm] 119/84 Blood Pressure Mean Blood Pressure Mean [Left Arm] 95 02 Sat by Pulse Oximetry 100 99 100 Oxygen Delivery Method Room Air Room Air 01/21/24 19:00 01/21/24 19:30 01/21/24 20:00 Temperature Temperature Source Pulse Rate 84 78 68 Pulse Rate [Left] Respiratory Rate Blood Pressure 136/81 133/79 140/74 Blood Pressure [Left Arm] Blood Pressure Mean 94 Blood Pressure Mean [Left Arm] 02 Sat by Pulse Oximetry 100 99 100 Oxygen Delivery Method Room Air 01/21/24 20:30 Temperature Temperature Source Pulse Rate 61 Pulse Rate [Left] Respiratory Rate 14 Blood Pressure 143/66 H Blood Pressure [Left Arm] Blood Pressure Mean Blood Pressure Mean [Left Arm] 02 Sat by Pulse Oximetry 100 Oxygen Delivery Method Lab Data Lab Results 01/21/24 19:39: WBC 13.0 H, RBC 4.28, Hgb 13.7, Hct 40.2, MCV 94.0, MCH 31.9 H, MCHC 34.0, RDW 14.1, Plt Count 301, MPV 9.4, Neut % (Auto) 86.3 H, Lymph % (Auto) 8.3 L, [place] % (Auto) 4.6, Eos % (Auto) 0.1, Baso % (Auto) 0.6, Neut # (Auto) 11.2 H, Lymph # (Auto) 1.1, [place] # (Auto) 0.6, Eos # (Auto) 0.0, Baso # (Auto) 0.1, Total Counted 100, Neutrophils % (Manual) 85 H, Lymphocytes % (Manual) 11, Monocytes % (Manual) 4, Platelet Estimate Normal, RBC Morphology Normal, PT 10.9, INR 0.97, Sodium 133 L, Potassium 2.1 L*, Chloride 94 L, Carbon Dioxide 25, Anion Gap 16.1 H, BUN 11, Creatinine 0.60, Estimated Creat Clear 30, Estimated GFR 102, Est GFR ( Amer) 123, Glucose 232 H, Lactate 1.3, Calcium 8.9, Phosphorus 3.0, Magnesium 1.5 L, Total Bilirubin 0.6, AST 21, ALT 13, Alkaline Phosphatase 104, Total Protein 6.5, Albumin 3.5, Globulin 3.0, Albumin/Globulin Ratio 1.2, Lipase 221, TSH 7.26 H, Free T4 Index 2.1 L, Thyroxine (T4) 6.2, T3 Uptake 34, Acetone Level Moderate, HIV 1&2 Antibody Rapid Nonreactive Orders (Tests/Meds): ED MEDICATIONS Generic Name Dose Route Start Last Admin Trade Name Freq PRN Reason Stop Dose Admin Potassium Chloride/Water 100 mls @ 50 mls/hr 01/21/24 20:05 01/21/24 20:19 Potassium Chloride 20meq/100ml Ivpb IV 01/22/24 00:04 50 mls/hr Q2H MARIA LUZ Administration Magnesium Sulfate 2 gm in 50 mls @ 50 mls/hr 01/21/24 20:52 Magnesium Sulfate 2gm/50ml Premix IV 01/21/24 21:51 ONCE ONE Discontinued Medications Generic Name Dose Route Start Last Admin Trade Name Jeromeq PRN Reason Stop Dose Admin Acetaminophen 1,000 mg 01/21/24 18:53 01/21/24 19:23 Acetaminophen 1,000mg/100ml Vial IV 01/21/24 18:54 1,000 mg ONCE ONE Administration Sodium Chloride 1,000 mls @ 999 mls/hr 01/21/24 18:53 01/21/24 19:23 Sod Chlor 0.9% 1000ml Bag IV 01/21/24 19:53 999 mls/hr .Q1H1M ONE Administration Iopamidol 75 ml 01/21/24 20:19 01/21/24 20:20 Iopamidol-370 (76%);100ml Bottle IV 01/21/24 20:20 75 ml ONCE ONE Administration Potassium Chloride 40 meq 01/21/24 20:05 01/21/24 20:19 Potassium Chloride 20meq/15ml Udc G-TUBE 01/21/24 20:06 40 meq ONCE ONE Administration Sodium Chloride 10 ml 01/21/24 20:19 01/21/24 20:20 Sodium Chloride 0.9% 10ml Syr (Rad Only) IV 01/21/24 20:20 10 ml ONCE ONE Administration ORDERS Category Date Time Status CT abdomen pelvis w con Stat Cat Scan 01/21/24 18:54 Taken Acetone, Serum (Rapid) Stat Lab 01/21/24 19:39 Completed CBC w/Auto Diff [Complete Blood Count Auto Diff] Stat Lab 01/21/24 19:39 Completed CMP [Comprehensive Metabolic Panel] Stat Lab 01/21/24 19:39 Completed HIV (1&2) Antibody Rapid Stat Lab 01/21/24 19:39 Completed Hep C Ab with Reflex to RNA Stat Lab 01/21/24 19:39 Received INR [Prothrombin Time INR] Stat Lab 01/21/24 19:39 Completed Lactic Acid Stat Lab 01/21/24 19:39 Completed Lipase Stat Lab 01/21/24 19:39 Completed Magnesium Stat Lab 01/21/24 19:39 Completed Phosphorous Stat Lab 01/21/24 19:39 Completed Thyroid Panel Stat Lab 01/21/24 19:39 Completed UA [Urinalysis and Microscopic] Stat Lab 01/21/24 18:53 Ordered ECG Data Tracing #1: Independently interpreted by me rate 61, rhythm is regular, axis is normal, U waves in lead II, nonspecific ST changes in the lateral leads. QTc 335 Medical Decision Narrative: In summary patient is a 63-year-old unwell appearing chronically ill-appearing cachectic female who presents to the emergency department for evaluation of multiple complaints but primarily weakness and nausea vomiting and loose stool but not diarrhea.. Patient is initially normotensive with a blood pressure 119/84 satting at 100% on room air breathing 18 times a minute upon arrival, afebrile. Physical exam reveals a severely cachectic 63-year-old female with skin tenting diffuse myalgias but no focal pain. She is generally tender to palpation in the abdomen bowel sounds are normal active. Drain sites are clean dry and intact there is no drainage in the IR drains there is no bag attached to her GJ tube.. Differential diagnosis includes severe protein calorie malnutrition versus cancer recurrence versus failure to thrive versus electrolyte imbalance etc. Initial workup will be conducted with hematologic labs CT scan of the abdomen pelvis and urinalysis.. Initial interventions include crystalloid bolus Tylenol and Zofran for now. Initial workup reviewed by me shows patient has a critical hypokalemia with U waves on her twelve-lead EKG, her white count is 13,000 with a normal H&H and absolute neutrophil count of 11.2 INR 0.97, sodium is 133 chloride 94 anion gap of 16.1 with CO2 serum of 25 a glucose of 232 back of 1.5 Phos of 3.0 calcium 8.9 lactate of 1.3 albumin is 3.5 with a moderate amount of acetone in serum. Given her gap I am not concerned for DKA at this time. My informal interpretation of CT scan abdomen pelvis shows the known cystic neoplasm in the head of the pancreas along with other smaller ones but otherwise no acute intra-abdominal processes are seen currently prior to radiology read. Given this I have reached out to the [facility] transfer center. I discussed patient management with the transfer center physician Dr. Brewer and she has been accepted to the [place] emergency department for further evaluation and care. I was consulted by the ALIRIO, and we discussed the complexity of the problems being addressed. I approved the treatment and management plan for this patient's care in the emergency department, thus performing a substantive portion of the medical decision making. Patient has complex abdominal cancer history status post surgical interventions with indwelling drains that should have been removed months ago has a GJ that you cannot push medications through. She has multiple electrolyte abnormalities consistent with starvation ketosis. Potassium magnesium be repleted IV, potassium be repleted p.o. as well. She has U waves on her EKG consistent with her hypokalemia. She is on continuous cardiac monitoring in the emergency department. Her free T4 is a little bit low which can be managed by the tertiary facility given that she is not in thyroid crisis with no bradycardia no hypotension. Fred Escobedo MD Critical Care <LAVERN Garcia - Last Filed: 01/21/24 21:00> Critical Care Time Critical Care Time: No
--- NOTE | 2024-01-21 18:30 | PC.NURSE ---
pa yelena sandra at [facility]
--- NOTE | 2024-01-21 18:36 | PC.NURSE ---
pa at [facility] speaking with pt son to obtain info
--- NOTE | 2024-01-21 18:54 | CT_ITS ---
PROCEDURE INFORMATION: Exam: CT Abdomen And Pelvis With Contrast Exam date and time: 01/21/2024 8:11 PM Age: 63 years old Clinical indication: Abdominal pain; Additional info: Abd pain status post colon cancer and pancreatitis TECHNIQUE: Imaging protocol: Computed tomography of the abdomen and pelvis with contrast. Radiation optimization: All CT scans at this facility use at least one of these dose optimization techniques: automated exposure control; mA and/or kV adjustment per patient size (includes targeted exams where dose is matched to clinical indication); or iterative reconstruction. Contrast material: ISOVUE; Contrast volume: 75 ml; Contrast route: IV; COMPARISON: CT ANGIO ABDOMEN PELVIS 07/14/2023 7:48 PM FINDINGS: Tubes, catheters and devices: There is a surgical drain along the inferior aspect of the right lobe of the liver. There is also a surgical drain in the epigastric region. Gastrostomy tube is present. Liver: Liver is normal. There are surgical clips in the deb hepatis region. Gallbladder and biliary ducts: Gallbladder is surgically absent. Pancreas: There is a cystic mass in the region of the head of the pancreas measuring 2.1 cm in diameter (image 31; series 3). There is dilation of the main pancreatic duct. Spleen: There are granulomas in the spleen. Adrenal glands: Adrenal glands appear unremarkable. Kidneys and ureters: Bilateral kidneys demonstrate no hydronephrosis. There is normal enhancement. There is a mass abutting the proximal left ureter measuring 1.9 x 0.8 cm (image 47; series 3). This appears unchanged, in comparison to previous study. There is also trace dilation of the left renal pelvis. Stomach and bowel: There are postop changes in the bowel at multiple locations. There is no bowel obstruction. Appendix: Appendix is not visualized. Intraperitoneal space: There is no free intraperitoneal air. There is fat stranding in the mesentery. There is trace free fluid in the pelvis. Vasculature: Main portal vein is patent. The splenic vein is patent. The superior mesenteric vein is attenuated in thickness at its portal confluence. There is normal caliber of the abdominal aorta and iliac arteries with scattered areas of atherosclerosis. Lymph nodes: There are no enlarged lymph nodes in the abdomen and pelvis. Urinary bladder: Urinary bladder appears unremarkable. Reproductive: Uterus is not visualized. No abnormal adnexal mass lesions. Bones/joints: The osseous structures demonstrate no acute abnormalities. Soft tissues: Unremarkable. IMPRESSION: 1. There is a cystic mass in the region of the head of the pancreas along with further dilation of the main pancreatic duct. These findings are worrisome for progression of the pancreatic neoplasm. 2. Extensive postsurgical changes in the bowel. No evidence of bowel obstruction. 3. There is a mass lesion measuring 1.9 x 0.8 cm abutting the proximal left ureter, relatively unchanged from previous CT dated 07/14/2023. It is uncertain if this represents a lymph node or a ureteric mass. 4. 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 No evidence of superior mesenteric vein thrombosis. COMMENTS: Consistent with the [employer]'s Incidental Findings Committee white paper (J Am Sergio Radiol 2018): Any incidental renal lesion less than 1 cm or classified as too small to characterize, or any incidental cystic renal lesion characterized as simple-appearing, is likely benign. No follow-up imaging is recommended for these lesions per consensus recommendations based on imaging criteria.
[2024-01-21] MEDS: 0.9 % SODIUM CHLORIDE 1000ML 1,000 ML 999 ML IV (19:23)
[2024-01-21] MEDS: ACETAMINOPHEN 1,000MG/100ML VIAL 1000 MG IV (19:23)
[2024-01-21 19:55] LABS: Albumin Level 3.5 g/dl (3.5-5.0); Chloride 94 mmol/L (98-107); Sodium 133 mmol/L (136-145)
[2024-01-21 19:58] LABS: Alanine Aminotransferase 13 U/L (12-78); Aspartate Amino Transferase 21 U/L (14-36); Basophils # 0.1 K/mm3 (0-0.2); Basophils % 0.6 % (0.1-2.0); Blood Urea Nitrogen 11 mg/dl (7-17); Carbon Dioxide 25 mmol/L (22.0-30.0); Creatinine Clearance Estimated 30 mL/min (50-200); Eosinophils % 0.1 % (0.1-12.0); Estimated Glomerular Filt Rate 102 ml/min (>60); GFR (African American) 123 ML/MIN (>60); Hematocrit 40.2 % (37.0-47.0); Hemoglobin 13.7 g/dL (12.2-16.2); Lymphocytes # 1.1 K/mm3 (0.7-4.5); Lymphocytes % 8.3 % (10-50); Mean Corpuscular Hemoglobin 31.9 pg (27.0-31.2); Mean Platelet Volume 9.4 fl (7.4-10.4); Monocytes # 0.6 K/mm3 (0.1-1.0); Monocytes % 4.6 % (1.7-9.3); Neutrophils # 11.2 K/mm3 (1.8-7.8); Neutrophils % 86.3 % (37.0-80.0); Platelet Count 301 K/mm3 (142-424); Red Blood Count 4.28 M/mm3 (4.20-5.40); Red Cell Distribution Width 14.1 % (11.5-17.5)
[2024-01-21 19:59] LABS: Alkaline Phosphatase 104 U/L (38-126); Bilirubin,Total 0.6 mg/dl (0.2-1.3); Calcium 8.9 mg/dl (8.4-10.2); Glucose 232 mg/dl (74-100)
[2024-01-21 20:00] LABS: INR 0.97 (0.9-1.1); Prothrombin Time 10.9 seconds (10.1-12.5)
[2024-01-21 20:02] LABS: Anion Gap 16.1 mEq/L (5-15); MANUAL DIFFERENTIAL MANUAL DIFFERENTIAL (MANUAL DIFF); Potassium 2.1 mmoL/L (3.5-5.1)
[2024-01-21 20:11] LABS: Lactic Acid 1.3 mmol/L (0.7-2.1)
[2024-01-21 20:12] LABS: Albumin/Globulin Ratio 1.2 (1.1-1.8); Total Protein,Serum 6.5 g/dl (6.3-8.2)
[2024-01-21] MEDS: POTASSIUM CHLORIDE 20MEQ/15ML UDC 40 MEQ G-TUBE (20:19)
[2024-01-21] MEDS: KCl 20mEq/100ml 100 ML 50 MEQ IV ×2 (20:19→21:33)
[2024-01-21] MEDS: SODIUM CHLORIDE 0.9% 10ML SYR (RAD ONLY) 10 ML IV (20:20)
[2024-01-21] MEDS: IOPAMIDOL-370 (76%);100ML BOTTLE 75 ML IV (20:20)
--- NOTE | 2024-01-21 20:23 | ECG_ITS ---
APPROVED REPORT Exam: Resting ECG HR:61 bpm ECG Measurements Heart Rate 61 AXES OH 148 P 88 QRSd 98 QRS 85 QT 332 T 80 QTc 335 Conclusion SINUS RHYTHM POSSIBLE RIGHT VENTRICULAR CONDUCTION DELAY [RSR (QR) IN V1/V2] NONSPECIFIC ST & T-WAVE ABNORMALITY BORDERLINE ECG UNCONFIRMED REPORT Electronically signed by : LEONID GILMORE, 01/22/2024 06:21:00
[2024-01-21 20:28] LABS: Lymphocytes % 11 % (10-50); Monocytes % 4 % (2-9); Neutrophils % 85 % (42-76); Total Cells Counted 100
[2024-01-21 20:29] LABS: Platelet Estimate Normal; RBC Morphology Normal
[2024-01-21 20:31] LABS: Triiodothryronine (T3) Uptake 34 % (23.5-40.5)
[2024-01-21 20:32] LABS: Free Thyroxine Index 2.1 ug/dL (5.93-13.13); T4 (Thyroxine) 6.2 ug/dl (5.53-11.0)
--- NOTE | 2024-01-21 20:39 | ECG_ITS ---
APPROVED REPORT Exam: Resting ECG HR:61 bpm ECG Measurements Heart Rate 61 AXES [place] 138 P 88 QRSd 93 QRS 83 QT 452 T 72 QTc [address] DEVIATION AND MODERATE T-WAVE ABNORMALITY, CONSIDER ANTERIOR ISCHEMIA [-0.1+ mV T-WAVE IN V3/V4] ABNORMAL ECG UNCONFIRMED REPORT Electronically signed by : LEONID GILMORE, 01/22/2024 06:21:14
[2024-01-21 20:42] LABS: Lipase 221 U/L (23-300); Magnesium 1.5 mg/dl (1.6-2.3)
[2024-01-21 20:43] LABS: Acetone, Serum (Rapid) Moderate (None Detect)
[2024-01-21 20:44] LABS: HIV (1&2) Antibody Rapid NONREACTIVE (NONREACTIVE)
[2024-01-21 20:45] LABS: Thyroid Stimulating Hormone 7.26 uIU/mL (0.465-4.68)
--- NOTE | 2024-01-21 20:49 | PC.NURSE ---
call placed to [facility] re: transfer to their facility, awaiting return call, updated
--- NOTE | 2024-01-21 20:49 | PC.NURSE ---
imaging being power shared to [facility] and disc being made for transfer
--- NOTE | 2024-01-21 20:51 | PC.NURSE ---
Don on phone with [facility] at this time
[2024-01-21] MEDS: MAGNESIUM SULFATE IN WATER 2 GM/50 ML PIGGYBACK IV (21:06)
--- NOTE | 2024-01-21 21:24 | PC.NURSE ---
Report called to ivelisse at [facility]
--- NOTE | 2024-01-21 22:23 | PC.NURSE ---
Report given to [facility]
[2024-01-23 05:19] LABS: HCV Ab Non Reactive (Non Reactive)
== END 2024-01-21 22:33 | disposition short-term general hospital (02) ==
PROVIDERS: Physician Assistant; Emergency Provider Emergency Medicine; PCP Nurse Practitioner
DX: D49.0 Neoplasm of unspecified behavior of digestive system (principal); E88.89 Other specified metabolic disorders; E87.6 Hypokalemia; E43 Unspecified severe protein-calorie malnutrition; R19.7 Diarrhea, unspecified; R11.2 Nausea with vomiting, unspecified; R53.1 Weakness
CPT/HCPCS: 74177; 80050; 80053; 82009; 83605; 83690; 83735; 84100; 84436; 84443; 84479; 85007; 85025; 85610; 86803; 87389; 93005; 96361; 96365; 96374; 99285; J0131; J3475; J7030; Q9967

== ENCOUNTER 2024-03-10 09:21 | Outpatient (CLI) | payer OTHER, SELFPAY ==
[2024-03-10 17:49] LABS: Basophils % 0.4 % (0.1-2.0); Eosinophils % 0.1 % (0.1-12.0); Hemoglobin 11.3 g/dL (12.2-16.2); Lymphocytes % 12.8 % (10-50); Mean Corpuscular HGB Conc 34.2 g/dL (31.8-35.4); Mean Corpuscular Hemoglobin 32.3 pg (27.0-31.2); Mean Corpuscular Volume 94.3 fl (81-99); Mean Platelet Volume 11.9 fl (7.4-10.4); Monocytes # 0.4 K/mm3 (0.1-1.0); Monocytes % 5.3 % (1.7-9.3); Neutrophils # 6.3 K/mm3 (1.8-7.8); Platelet Count 140 K/mm3 (142-424); Red Cell Distribution Width 16.3 % (11.5-17.5); White Blood Count 7.8 K/mm3 (4.8-10.8)
[2024-03-10 17:58] LABS: Albumin Level 3.1 g/dl (3.5-5.0); Chloride 92 mmol/L (98-107)
[2024-03-10 17:59] LABS: Sodium 128 mmol/L (136-145)
[2024-03-10 18:01] LABS: Blood Urea Nitrogen 12 mg/dl (7-17); Estimated Glomerular Filt Rate 102 ml/min (>60); GFR (African American) 123 ML/MIN (>60)
[2024-03-10 18:02] LABS: Alanine Aminotransferase 56 U/L (12-78); Albumin/Globulin Ratio 1.1 (1.1-1.8); Alkaline Phosphatase 202 U/L (38-126); Anion Gap 4.6 mEq/L (5-15); Aspartate Amino Transferase 69 U/L (14-36); Bilirubin,Total 0.5 mg/dl (0.2-1.3); Calcium 8.6 mg/dl (8.4-10.2); Carbon Dioxide 34 mmol/L (22.0-30.0); Globulin 2.7 g/dL (1.3-3.2); Glucose 305 mg/dl (74-100); Total Protein,Serum 5.8 g/dl (6.3-8.2)
[2024-03-10 18:19] LABS: Free T4 (Free Thyroxine) 1.28 ng/dl (0.78-2.19)
[2024-03-10 18:30] LABS: Potassium 2.6 mmoL/L (3.5-5.1)
[2024-03-10 18:33] LABS: Thyroid Stimulating Hormone 4.14 uIU/mL (0.465-4.68)
[2024-03-10 19:21] LABS: Hemoglobin A1C 7.5 % (4.0-6.0)
[2024-03-10 21:38] LABS: Vitamin B12 763 pg/mL (239-931)
== END 2024-03-10 23:59 | disposition home or self-care (01) ==
LOC: LAB.DROPOF 03-11 09:22
PROVIDERS: PCP Nurse Practitioner; Visit Provider Nurse Practitioner
DX: E05.00 Thyrotoxicosis with diffuse goiter without thyrotoxic crisis or storm (principal); E11.9 Type 2 diabetes mellitus without complications; E43 Unspecified severe protein-calorie malnutrition
CPT/HCPCS: 80053; 82607; 83036; 84439; 84443; 85025